=== PATIENT | female | born 1945 | race Caucasian/White ===

== ENCOUNTER → 2021-05-17 11:21 | Outpatient (BNVA) | payer MEDICARE, MEDICAID, SELFPAY | PROVIDERS: PCP Internal Medicine | DX: N39.0 Urinary tract infection, site not specified (principal); R34 Anuria and oliguria | CPT/HCPCS: 99212 ==

== ENCOUNTER 2022-08-24 11:44 | Outpatient (REF) | payer MEDICARE, MEDICAID, SELFPAY ==
[2022-08-24 16:53] LABS: Urine Cytology See Pathology rpt
== END 2022-08-24 11:45 | disposition home or self-care (01) ==
LOC: HO.LAB 11:44
PROVIDERS: PCP Internal Medicine; Visit Provider Nurse Practitioner Family
DX: N32.81 Overactive bladder (principal); N39.3 Stress incontinence (female) (male); N39.0 Urinary tract infection, site not specified; R34 Anuria and oliguria; Z79.82 Long term (current) use of aspirin; Z79.899 Other long term (current) drug therapy
CPT/HCPCS: 51798; 88112; 99212

== ENCOUNTER 2023-10-23 11:39 | Outpatient (AMB) | payer MEDICARE, MEDICAID, SELFPAY ==
--- NOTE | 2023-10-23 11:38 | MHC.OFFVIS ---
Intake Visit Reasons: one year follow up Intake Note: Patient is present for 1yr follow up recurrent uti and stress incontinence Urology Medications: myrbetriq, nitrofurantoin (prn) Blood thinner: aspirin PVR: 0ml's Application Development Director Required: No Accompanied by: Self / Same As Patient Allergies acetaminophen [Percocet] Allergy (Unknown, Verified 10/23/23 11:39) Unknown droperidol [Droperidol] Allergy (Unknown, Verified 10/23/23 11:39) DISORIENTATION/DIZZY/NAUSEA oxycodone [Percocet] Allergy (Unknown, Verified 10/23/23 11:39) Unknown pregabalin Allergy (Unknown, Verified 10/23/23 11:39) Unknown sumatriptan [From Imitrex] Allergy (Unknown, Verified 10/23/23 11:39) WELTS Diamox Sequels Allergy (Unknown, Uncoded 10/23/23 11:39) Unknown From Imitrex Allergy (Unknown, Uncoded 10/23/23 11:39) WELTS From Stadol Allergy (Unknown, Uncoded 10/23/23 11:39) DISORIENTATION/DIZZY/NAUSEA From Toradol Allergy (Unknown, Uncoded 10/23/23 11:39) DISORIENTATION/DIZZY/NAUSEA Stadol Allergy (Unknown, Uncoded 10/23/23 11:39) Unknown HPI Comments Details: Mariaelena is a pleasant 78-year-old female patient was accompanied by her Jayden at today's office visit. She has a past medical history of stress incontinence, chronic urinary tract infections, hiatal hernia, migraines, restless leg syndrome, interstitial cystitis, and diastolic heart failure. She presents to the office today for follow-up of her overactive bladder and chronic urinary tract infections. When asked she reports to be doing and feeling well. When asked she currently denies any urological issues or concerns at this time. She reports compliance with Myrbetriq and reports this to be working extremely well for her. She reports having been off of Myrbetriq awaiting prior authorization due to insurance changes and noted lower urinary tract symptoms however has since restarted the medication and has been doing and feeling well. When asked she denies urinary urgency, urinary frequency, incontinence, nocturia, hematuria, dysuria, foul smelling urine, changes to urinary stream, flank pain, fever, and or chills. She discusses her recent diagnosis of diastolic heart failure and is following up with cardiology regarding this issue. In office urinalysis results reviewed with the patient today. PVR 0 mL. She otherwise offers no other issues or concerns at this time. [facility] Medical History Stress incontinence Chronic urinary tract infection, suppressed Hiatal hernia Headache, migraine Restless leg syndrome UTI (urinary tract infection) Interstitial cystitis Surgical History History of surgery Social History Patient Tobacco Use Status: Never used Tobacco Review of Systems Const All systems reviewed & are unremarkable except as noted in HPI and below Reports as per HPI Eyes Reports no additional complaints ENT Reports no additional complaints Card Reports as per HPI Resp Reports no additional complaints GI Reports no additional complaints Reports as per HPI Musc Reports no additional complaints Neuro Details: Patient reports following up with Neurology for longstanding complex migraines Psych Details: Patient reports longstanding history of anxiety Endo Reports no additional complaints Ab/Lymph Reports no additional complaints Aller/Immun Reports no additional complaints Physical Exam Const General: cooperative, healthy appearing, comfortable, no acute distress, well developed, alert and awake Nutritional Appearance: average body habitus Orientation/consciousness: patient oriented x3 Limitations: no limitations HEENT Head: Yes normal to inspection, Yes normocephalic and Yes atraumatic Ears: hearing grossly normal bilaterally Eyes General: appearance normal, both eyes and all related structures Neck Neck: Yes normal visual inspection and Yes trachea midline Chest Chest palpation & inspection: normal inspection of the chest Resp Effort & Inspection: normal respiratory effort and able to speak in complete sentences Cardio Rate: regular rate GI Inspection: Yes normal to inspection General: Yes no CVA tenderness Back/Spine/Pelvis Back: no CVA tenderness Skin General skin exam: no rashes or lesions noted Neuro General: patient oriented x3 Extrem General: Yes normal to inspection Psych Appearance: grossly normal and well kempt Mental Status: mental status grossly normal Speech and movement: Normal speech and movement present and Clear speech present Affect: normal affect Attitude: cooperative Thought process: Normal thought process present Thought content: Normal thought content present Insight: Fair insight present (Psych) Judgement: Fair judgement present (Psych) Office Procedures Post Void Residual Post Residual Void Post Void Residual (PVR): 0 41098-Iaet Void Residual by ultrasound Results AMB Urinalysis, Automated UA Leukoctes 15 Norm/uL Last Edit by Troy Cantu on 10/23/23 11:59 UA Nitrite Negative Last Edit by [employer] on 10/23/23 11:59 UA Urobilinogen 0.2 mg/dL Last Edit by [employer] on 10/23/23 11:59 UA Protein 15 mg/dL Last Edit by [employer] on 10/23/23 11:59 UA pH 6.5 Last Edit by Aarki on 10/23/23 11:59 UA Blood 10 Nicolás/uL Last Edit by [employer] on 10/23/23 11:59 UA Specific [place] 1.010 Last Edit by [employer] on 10/23/23 11:59 UA Ketone Negative Last Edit by [employer] on 10/23/23 11:59 UA Bilirubin 0 mg/dL Last Edit by [employer] on 10/23/23 11:59 UA Glucose 0 mg/dL Last Edit by Aarki on 10/23/23 11:59 Results Reviewed Results Reviewed: Laboratory Last Values Urine pH (Auto) 6.5 10/23/23 11:40 Specific [place] (Auto) 1.010 10/23/23 11:40 Urine Protein (Auto) 15 mg/dL 10/23/23 11:40 Glucose (UA)(Auto) 0 mg/dL 10/23/23 11:40 Urine Ketones (Auto) Negative 10/23/23 11:40 Urine Blood (Auto) 10 Nicolás/uL 10/23/23 11:40 Urine Nitrite (Auto) Negative 10/23/23 11:40 Urine Bilirubin (Auto) 0 mg/dL 10/23/23 11:40 Urine Urobilinogen (Auto) 0.2 mg/dL 10/23/23 11:40 Leukocyte Esterase (Auto) 15 Norm/uL 10/23/23 11:40 Assessment & Plan Assessment & Plan (1) Stress incontinence: Code(s): N39.3 - Stress incontinence (female) (male) Category: Medical (2) Chronic urinary tract infection, suppressed: Code(s): N39.0 - Urinary tract infection, site not specified; R34 - Anuria and oliguria Category: Medical Plan In office urinalysis results reviewed with the patient today; as noted above. PVR 0 mL. Patient currently denies any bothersome urinary issues or concerns. She reports be happy with current voiding parameters. Continue Vagifem, Myrbetriq, and low-dose Macrobid Discussed UTI prevention with D mannose supplement, vitamin-C, increasing fluid intake, behavioral therapy with timed voiding, perineal hygiene and postcoital voiding, and management of constipation with stool softeners and increased fiber intake. Follow-up in 1 year with PVR; or sooner with any issues, concerns, and or questions. Orders: Orders AMB Urinalysis Automated Today Z13.9 - Encounter for screening, unspecified AMB Post Void Residual by ultrasound Today N39.3 - Stress incontinence (female) (male) Coding Level of Care Code Est Pt Level 3 (80338) Diagnoses Stress incontinence N39.3 Chronic urinary tract infection, suppressed N39.0; R34 CPT Codes Post Residual Void - PVR CPT Code: 96532-Azth Void Residual by ultrasound ([id number])
== END 2023-10-23 12:14 | disposition home or self-care (01) ==
PROVIDERS: Visit Provider Nurse Practitioner Family
DX: N39.3 Stress incontinence (female) (male) (principal); N39.0 Urinary tract infection, site not specified; R34 Anuria and oliguria; Z13.9 Encounter for screening, unspecified
CPT/HCPCS: 99213

== ENCOUNTER → 2023-10-23 11:39 | Outpatient (BNVA) | payer MEDICARE, MEDICAID, SELFPAY | PROVIDERS: Visit Provider Nurse Practitioner Family | DX: N39.3 Stress incontinence (female) (male) (principal); N39.0 Urinary tract infection, site not specified; R34 Anuria and oliguria; Z79.82 Long term (current) use of aspirin; Z79.899 Other long term (current) drug therapy | CPT/HCPCS: 51798; 81003; 99212 ==

== ENCOUNTER 2025-02-10 14:42 | Outpatient (REF) | payer MEDICARE, MEDICAID, SELFPAY ==
--- OUTSIDE RECORDS SUMMARY | 2025-02-10 18:30 | XMS_ITS | Clinical Summary ---
Author Organization [facility] Address [facility] [place] [address] Care Team Providers Care Edge Trimmer Mechanic Name Role Phone Unavailable Primary Care Provider Unavailabl e Social History Tobacco Use Types Packs/Day Years Used Date Smoking Tobacco: Never Assessed Comments Unknown Sex and Gender Information Value Date Recorded Sex Assigned at Not on file Legal Sex Female 4:08 PM EDT Gender Identity Not on file Sexual Orientation Not on file Plan of Treatment Health Maintenance Due Date Last Done Comments Hepatitis C Screening 1963 Tetanus/Diphtheria/Pertussis Vaccines (1 - Tdap) 10/12 Pneumoccocal Vaccine: 50+ (1 of 1 - PCV) 1996 Zoster vaccine (1 of 2) 1996 Advance Directive 2001 Bone Density Scan 10/13/2011 RSV Vaccine (1 - 1-dose 75+ series) 2021 Covid-19 Vaccine (1 - season) 2025 Influenza (Flu) vaccine (1 o f 1 - Influenza standard series) 02/03/2025 Insurance MEDICARE
--- OUTSIDE RECORDS SUMMARY | 2025-02-10 18:30 | XMS_ITS ---
Author Name [facility] Organization Unknown Care Team Organization Name Specialty Phone Email Start Date End Da te [facility] 01/22/2025 [facility] Willi Velásquez Primary Care 08/10/2022 01/22/2024 [facility] Termed, PROVIDER Primary Care 04/12/202201/03
== END 2025-02-10 14:43 | disposition home or self-care (01) ==
LOC: HO.LAB 14:42
PROVIDERS: PCP Internal Medicine; Visit Provider Nurse Practitioner Family
DX: N39.0 Urinary tract infection, site not specified (principal); R31.29 Other microscopic hematuria; R34 Anuria and oliguria; Z13.89 Encounter for screening for other disorder; Z79.82 Long term (current) use of aspirin
CPT/HCPCS: 51798; 81003; 88112; 99212

== ENCOUNTER 2025-02-10 14:42 | Outpatient (AMB) | payer MEDICARE, MEDICAID, SELFPAY ==
--- OUTSIDE RECORDS SUMMARY | 2024-12-05 11:30 | XMS_ITS ---
Author Organization [facility] Address [address] [place] [address] Care Team Providers Care Skein Drier Name Role Phone Willi Velásquez Primary Care Provider Rui Thomas Unavailable [phone] Medications Medication SIG (Take, Route, Frequency, Duration) Notes Start Date End Date Status cloNIDine HCl 0.2 MG TAKE 1 TABLET BY MOUTH TWICE A DAY; Duration: 90 Active Nortriptyline HCl 25 MG TAKE 2 CAPSULE BY MOUTH EVERY DAY FOR 30 DAYS; Duration: 90 days Active Emgality 120 MG/ML INJECT 1 PRE-FILLED SYRINGE EVERY 30 DAYS.; Duration: 30 days 5 Active CALCIUM 250-VIT D3 125 TABLET 250-125 MG-UNIT 0 chewable 2 qam; Duration: 30 *please review for potential _update for e-prescription and drug interaction check* 07/02/2019 Not-Taking MYRBETRIQ ER 50 MG TABLET 0 1 qam *please review for potential _update for e-prescription and drug interaction check* change to Myrbetriq 05/05/2017 Active Nortriptyline HCl 25 MG 2 capsules Orally Once a day; Duration: 90 days Active buPROPion HCl ER (SR) 150 MG 1 TABLET BY MOUTH TWICE A DAY; Duration: 90 days Active MIRALAX POWDER 17 GRAM/DOSE 0 1 capful q4days.; Duration: 0 *please review for potential _update for e-prescription and drug interaction check* 06/09/2014 Active Aspirin 81 MG 1 tablet Orally Once a day Active Famotidine 20 MG 0 Oral 1 bid; Duration: 30 09/30/2019 Active Ondansetron HCl 8 MG 20 Oral 1 tab q6h prn nausea.; Duration: 0 05/19/2017 Active Pramipexole Dihydrochloride 0.5 MG 0 Oral 1 qhs; Duration: 30 05/19/2017 Active FIORICET-COD 07-424-10-30 CAP MG 0 PRn, limited to 15/month.; Duration: 30 *please review for potential _update for e-prescription and drug interaction check* 07/20/2016 Active Escitalopram Oxalate 20 MG 1 tablet Orally Once a day Active Pantoprazole Sodium 40 MG 1 tablet Orally twice a day 12/05/2024 Active Ondansetron HCl 8 MG 1 tablet as needed Orally every 8 hours; Duration: 30 days 02/29/2024 Active Chlorthalidone 25 MG 1 tablet in the morning with food Orally every morning 02/29/2024 Active Nitrofurantoin 100 MG as directed Orally Active Vital Signs Blood pressure systolic 115 mm Hg 12/06/19 25 Blood pressure diastolic 69 mm Hg 025 Heart Rate 101 /min 12/05/2024 Height 8.094404 Inches in 12/05/2024 Weight 93.2 lbs 12/05/2024 BMI 1023.74 kg/m2 12/05/2024 Weight-kg 42.28 kg 12/05/2024 Encounters Encounter Location Date Provider Diagnosis [facility] [address] [place] [address] 12/05/2024 Rui Lucas Migraine without aur a, not intractable, without status migrainosus G43.009 Assessments Encounter Date Diagnosis (ICD Code) Assessment Notes Treatment Notes Treatment Clinical Notes Section Notes 12/05/2024 Migraine without aura, not intractable, without status migrainosus (ICD-10 - G43.009) Plan Of Treatment Next Appt Details Follow Up: 6 Months, Reason: Provider Name:Kecia Marc, 0 06/12/2025 10:00:00 AM, [address] [place] [address], [id number], Progress Notes * Mariaelena JOSÉ EDOB:1945 (79 yo F)Acc No.[id number]:12/05/2024 Progress Notes Patient: Mariaelena SHERIFF Provider: Ezra Lucas MD :1945 A ge:79 Y S ex:Female Date:12/05/2024 Address:[address] [place] [address] , [place], [id number] Pcp:Willi Velásquez Subjective: * Chief Complaints: * * Medical History: * Medications: T aking Pantoprazole Sodium 40 MG Tablet Delayed Release 1 tablet Orally twice a day , Taking Ondansetron HCl 8 MG Tablet 1 tablet as needed Orally every 8 hours , Taking Chlorthalidone 25 MG Tablet 1 tablet in the morning with food Orally every morning , Taking Nitrofurantoin 100 MG Capsule as directed Orally , Taking Escitalopram Oxalate 20 MG Tablet 1 tablet Orally Once a day , Taking Aspirin 81 MG Tablet Delayed Release 1 tablet Orally Once a day , Taking Famotidine 20 MG Tablet 0 Oral 1 bid , Taking Ondansetron HCl 8 MG Tablet 20 Oral 1 tab q6h prn nausea. , Taking Pramipexole Dihydrochloride 0.5 MG Tablet 0 Oral 1 qhs , Taking FIORICET-COD 77-472-51-30 CAP MG 0 PRn, limited to 15/month. , Notes to Pharmacist: *please review for potential _update for e-prescription and drug interaction check*, Taking MIRALAX POWDER 17 GRAM/DOSE 0 1 capful q4days. , Notes to Pharmacist: *please review for potential _update for e-prescription and drug interaction check*, Taking MYRBETRIQ ER 50 MG TABLET 0 1 qam , Notes to Pharmacist: *please review for potential _update for e-prescription and drug interaction check* change to Myrbetriq, Taking Nortriptyline HCl 25 MG Capsule 2 capsules Orally Once a day , Taking buPROPion HCl ER (SR) 150 MG Tablet Extended Release 12 Hour 1 TABLET BY MOUTH TWICE A DAY , Taking cloNIDine HCl 0.2 MG Tablet TAKE 1 TABLET BY MOUTH TWICE A DAY , Taking Nortriptyline HCl 25 MG Capsule TAKE 2 CAPSULE BY MOUTH EVERY DAY FOR 30 DAYS , Taking Emgality 120 MG/ML Solution Prefilled Syringe INJECT 1 PRE-FILLED SYRINGE EVERY 30 DAYS. , stop date 02/03/2025, Not-Taking CALCIUM 250-VIT D3 125 TABLET 250-125 MG-UNIT 0 chewable 2 qam , Notes to Pharmacist: *please review for potential _update for e-prescription and drug interaction check*, Discontinued traZODone HCl 100 MG Tablet 1 or 2 tablet at bedtime Orally Once a day , Notes to Pharmacist: paradoxical excitement, Discontinued Potassium Chloride ER 10 MEQ Tablet Extended Release 1 tablet with food Orally every morning Objective: * Vitals: B P: 115/69 mm Hg, HR: 101 /min, Wt: 93.2 lbs, Wt-k.28 kg, Ht: 8.914849 Inches, BMI: 1023.74 Index, Body Surface Area: 0.49. Assessment: * Assessment: 1. M igraine without aura, not intractable, without status migrainosus - G43.009 (Primary) Plan: * Treatment: * Follow Up: 6 Months * Billing Information: * Visit Code: 42504 OFFICE VISIT,EST PT,LEVEL 4. * Procedure Codes: * [place], [id number] on 02/10/2025 at 05:02 PM EDT Sign off status: Pending * Provider: Ezra Lucas MD Date: 12/05/2024 Generated for Luis Alfredo feng/Taylor/Syditting on: 02/10/2025 05:02 PM EDT
--- OUTSIDE RECORDS SUMMARY | 2025-02-06 11:00 | XMS_ITS | Encounter Summary ---
Author Organization [facility] [address] Address [address] [place] [address] Care Team Providers Care Cadd Instructor Name Role Phone Royce Velásquez MD Primary Care Provider [phone] Reason for Visit * Reason Comments hospital f/u Encounter Details Date Type Department Care Team (Latest Contact Info) Description 02/06/2025 11:00 AM EDT Office Visit [facility] [address] [place] [phone] Royce Velásquez MD [address] [place] [phone] Gastroparesis (Primary Dx); Hospital discharge follow-up Social History Tobacco Use Types Packs/Day Years Used Date Smoking Tobacco: Never Smokeless Tobacco: Never Tobacco Cessation:Counseling Given: Not Answered Alcohol Use Standard Drinks/Week Comments No 0 (1 standard drink = 0.6 oz pur e alcohol) Housing Instability Answer Date Recorde d Are you worried that in the next 2 months you may not have stable housing? No 01/28/2025 Food Access & Nutrition Answer Date Rec orded Do you have access to a vari ety of food including fruits and vegetables? Yes 10/08/2024 Access to Healthcare Answer Date Record ed Within the last 3 months, dean artis many times did you visit the emergency department for your medical care? 2 10/08/2024 Financial Risk Answer Date Recorded How hard is it for you to pa y for the very basics like food, housing, medical care, and air conditioning / heating? Not very hard 01/28/2025 Transportation Answer Date Recorded Has the lack of transportati on kept you from meetings, work, or from getting things needed for daily living? No Has the lack of transportati on kept you from medical appointments or from getting medications? No 01/28/2025 Social Isolation Answer Date Recorded How often do you feel lonely or isolated from th ose around you? Never 10/08/2024 Food Risk Answer Date Recorded Within the past 12 months we worried whether our food would run out before we got money to buy more. Never true 01/28/2025 Within the past 12 months th e food we bought just didn't last and we didn't have money to get more. Never true 01/28/2025 Dependent Care Answer Date Recorded Do you need help finding or paying for care for your loved ones. For example, attendant children's institution or elderly care for an older adult? No 10/08/2024 Education Answer Date Recorded Do you think completing more education or training, like finishing a GED, going to college, or learning a trade, would be helpful for you? N/A 10/08/2024 Employment and Income Answer Date Recor ded During the last four weeks, have you been actively looking for work? No 10/08/2024 Living Situation Answer Date Recorded What is your living situation? 0 01/28/2025 Comments No Sex and Gender Information Value Date Recorded Sex Assigned at Not on file Legal Sex Female 3:21 AM EST Gender Identity Not on file Sexual Orientation Not on file documented as of this encounter Last Filed Vital Signs Vital Sign Reading Time Taken Comments Blood Pressure 141/90 02/06/2025 11:12 AM EDT Pulse 100 02/06/2025 11:12 AM EDT Temperature 36.4 C (97.5 F) 02/06/2025 11:12 AM EDT Respiratory Rate - - Oxygen Saturation - - Inhaled Oxygen Concentration - - Weight 43.5 kg (96 lb) 02/06/2025 11:12 AM EDT Height 158.8 cm (5' 2.5 ) 02/06/2025 11:12 AM ED T Body Mass Index 17.28 02/06/2025 11:12 AM EDT documented in this encounter Progress Notes * C Yo Velásquez MD - 02/06/2025 11:00 AM EDT CHIEF COMPLAINT: hospital f/u IDENTIFIER: Mariaelena José is a 79 y.o. old female. HPI: Patient comes in with her friend for follow-up of recent hospitalization. She is being evaluated bygastroenterology for abdominal bloating and early satiety following hiatal hernia surgery. She was at the hospital getting a gastric emptying scan and began having reflux and abdominal pain and was sent to the ER for admission. She was able to eventually complete most of her scan but results not available. It does sound like she had gastroparesis. She is scheduled for an upper endoscopy later this month with her hand candy cutter. She is feeling a bit better now. She still feels some burning in her chest up into her throat. She has been taking Protonix, Pepcid and Gaviscon. ROS: GENERAL: Negative for malaise, significant weight loss and fever RESPIRATORY: No cough, wheezing or shortness of breath CARDIOVASCULAR: Negative for chest pain, leg swelling and palpitations GI: Negative for abdominal discomfort, changes in bowel habits, blood in stool or black stools : Negative for dysuria, frequency, and incontinence PAST MEDICAL HISTORY: Patient Active Problem List Diagnosis Date Noted Migraine without aura, not refractory 01/30/2025 Underweight 01/30/2025 Atrial tachycardia (CMS/HCC V24) 04/08/2024 Chronic neck pain 04/08/2024 Chronic UTI (urinary tract infection) 04/08/2024 Eczema 04/08/2024 Frequent headaches 04/08/2024 GERD (gastroesophageal reflux disease) 04/08/2024 Restless leg syndrome 04/08/2024 Abnormal EKG 08/03/2023 Multiple thyroid nodules 05/09/2023 Dizziness 05/05/2023 Other chest pain 05/05/2023 Diastolic dysfunction 10/04/2022 Atrophy of kidney 07/13/2022 Shortness of breath on exertion 10/11/2021 Allergic rhinitis 05/20/2020 Anxiety 05/20/2020 Edema of lower extremity 09/23/2019 Chronic kidney disease due to hypertension 06/03/2019 DDD (degenerative disc disease), lumbar 03/28/2018 Hypercholesteremia 11/21/2017 Syncope 09/05/2017 Primary hypertension 03/21/2017 Abnormal finding of kidney 07/11/2015 SOCIAL HISTORY: Social History Tobacco Use Smoking status: Never Smokeless tobacco: Never Substance Use Topics Alcohol use: No FAMILY HISTORY: Family Status Relation Name Status Mother Father Sister Alive MGM (Not Specified) Aunt (Not Specified) Father's bakari (Not Specified) Brother Alive No partnership data on file Family History Problem Relation Name Age of Onset Diabetes Mother Arthritis Mother Hypertension Father Heart attack Father 45.00 CABG Sister Other (Other: Stomach Cancer) Maternal Grandmother Stroke Aunt Other (Other: Heart Disease) Father's side ACTIVE MEDICATIONS: Outpatient Medications Marked as Taking for the 02/06/25 encounter (Office Visit) with Royce Velásquez MD Medication Sig Dispense Refill aspirin 81 mg EC tablet TAKE 1 TABLET BY MOUTH EVERY DAY 90 tablet 1 buPROPion SR (WELLBUTRIN SR) 150 mg 12 hr tablet Take 2 Tablets by mouth at bedtime. 1 in the am, 2in the pm rgfctvrjre-ghtnnpycorgio-bypjswot-codeine (FIORICET WITH CODEINE) 39-311-21-30 mg per capsule Take 1 capsule by mouth 1 (one) time each day if needed for headaches. Max Daily Amount: 1 capsule 15 capsule 1 cecgfxddpd-gjbyaev-sjawapoj-codeine (Ascomp with codeine) 42-62-167-40 mg per capsule Take 1 capsule by mouth every 4 (four) hours if needed for headaches. chlorthalidone (HYGROTON) 25 mg tablet TAKE 1 TABLET BY MOUTH EVERY DAY 90 tablet 3 cloNIDine (CATAPRES) 0.2 mg tablet Take 1 tablet by mouth 2 times daily. docusate sodium (COLACE) 100 mg capsule Take 2 capsules (200 mg total) by mouth. erythromycin base 250 mg tablet TAKE 1 TABLET BY MOUTH 3 TIMES A DAY WITH MEALS FOR 7 DAYS escitalopram (LEXAPRO) 20 mg tablet Take 1 tablet (20 mg total) by mouth 1 (one) time each day. 90 tablet 1 famotidine (PEPCID) 20 mg tablet TAKE 1 TABLET BY MOUTH TWICE A DAY 180 tablet 0 galcanezumab-gnlm (Emgality Syringe) 120 mg/mL syringe meloxicam (Mobic) 15 mg tablet Take 1 tablet (15 mg total) by mouth 1 (one) time each day if neededfor moderate pain. 30 each 1 mirabegron (Myrbetriq) 50 mg tablet extended release 24 hr 24 hr tablet daily. nitrofurantoin (MACRODANTIN) 100 mg capsule as needed. nortriptyline (PAMELOR) 25 mg capsule Take 2 Capsules by mouth at bedtime. pantoprazole (PROTONIX) 40 mg EC tablet Take 1 tablet (40 mg total) by mouth 1 (one) time each day.Do not crush, chew, or split. 90 tablet 1 polyethylene glycol (MIRALAX) 17 gram packet Take 17 g by mouth 1 (one) time each day. 510 g 11 potassium chloride (KLOR-CON) 10 mEq CR tablet TAKE 1 TABLET BY MOUTH EVERY DAY pramipexole (MIRAPEX) 0.5 mg tablet TAKE 1 AND 1/2 TABLETS BY MOUTH DAILY 135 tablet 0 ramelteon (Rozerem) 8 mg tablet Take 1 tablet (8 mg total) by mouth at bedtime. 30 each 1 senna (SENOKOT) 8.6 mg tablet Take 1 tablet (8.6 mg total) by mouth 1 (one) time each day. sodium phosphate (Fleet Enema) 19-7 gram/118 mL enema Insert into the rectum 1 (one) time. ALLERGIES: Acetazolamide, Adhesive tape-silicones, Butorphanol, Droperidol, Duloxetine hcl, Ketorolac, Other, Pregabalin, Sumatriptan, and Lisinopril PHYSICAL EXAM: Blood pressure (!) 141/90, pulse 100, temperature 36.4 ??C (97.5 ??F), temperature source Temporal,height 1.588 m (62.5 ), weight (!) 43.5 kg (96 lb). Body mass index is 17.28 kg/m??. Plan is deferred until next visit APPEARANCE: Alert and in no acute distress NECK: Neck supple, no adenopathy, thyroid symmetric and of normal size, No bruits HEART: RRR with normal S1 and S2, no murmurs, no gallops, no JVD appreciated LUNG: clear to auscultation bilaterally ABDOMEN: Bowel sounds normoactive, no bruits and soft, non-tender, without organomegaly or palpablemasses EXTREMITIES: Extremities warm and well perfused without clubbing, cyanosis, or edema LABS: IMPRESSION: 1. Gastroparesis 2. Hospital discharge follow-up PLAN: Unremarkable exam and she appears comfortable today. She will continue to work with gastroenterology. I suspect she has a little bit of esophagitis from her recent episode which is causing some lingering symptoms. She will continue current treatment. He also felt she might be constipated and she will make sure she is moving her bowels regularly. She has MiraLAX and stool softener which she has been using. Blood pressure borderline today. She has a regular follow-up in 2 weeks to recheck this. No orders of the defined types were placed in this encounter. ADDITIONAL ORDERS: None Royce Velásquez MD on 02/06/2025 at 3:06 PM EDT documented in this encounter Plan of Treatment Upcoming Encounters Date Type Department Care Team (Late st Contact Info) Description 02/19/2025 11:00 AM EDT Office Visit Adult Medicine [address] [phone] Nona Em NP [address] [place] [address] 03/04/2025 12:30 PM EDT Appointment [facility] Endoscopy [address] [place] [phone] Jhoan Silver MD [address] [place] [phone] 06/09/2025 10:30 AM EST Office Visit Adult Medicine [address] [phone] Royce Velásquez MD [address] [place] [phone] 06/10/2025 11:00 AM EST Office Visit Gastroenterology - 299 [facility] [address] [phone] Jhoan Silver MD [address] [place] [phone] documented as of this encounter Visit Diagnoses Diagnosis Gastroparesis- Primary Hospital discharge follow-up Other follow-up examination documented in this encounter Care Teams Cadd Instructor Relationship Specialty Start Date End Date Royce Velásquez MD [address] [place] [address] PCP - General Internal Medicine 01/27/15 documented as of this encounter
--- OUTSIDE RECORDS SUMMARY | 2025-02-06 12:05 | XMS_ITS | Encounter Summary ---
Author Organization [facility] Address [address] [place] [address] Care Team Providers Care Professor Of Environmental Studies Name Role Phone Royce Velásquez MD Primary Care Provider [phone] Encounter Details Date Type Department Care Team (Latest Contact Info) Description 02/06/2025 12:05 PM EDT - 02/06/2025 11:59 PM EDT Hospital Encounter [facility] Xray [address] [place] [address] Chronic idiopathic constipation Discharge Disposition: Home or Self Care Social History Tobacco Use Types Packs/Day Years Used Date Smoking Tobacco: Never Smokeless Tobacco: Never Alcohol Use Standard Drinks/Week Comments No 0 [...] Record ed Within the last 3 months, ho w many times did you visit the emergency [...] care for your loved ones. For example, early childhood coordinator or elderly care for an older adult? [...] on file documented as of this encounter Medications at Time of Discharge aspirin 81 mg EC tablet TAKE 1 TABLET BY MOUTH EVERY DAY 90 tablet 1 12/30/2024 bisacodyL (FLEET BISACODYL) 10 mg/30 mL enema Insert 30 mL (10 mg total) into the rectum 1 (one) time. buPROPion SR (WELLBUTRIN SR) 150 mg 12 hr tablet Take 2 Tablets by mouth at bedtime. 1 in the am, 2 in the pm butalbital-acetami qshwlj-vvwsyeyy-av deine (FIORICET WITH CODEINE) 94-690-76-30 mg per capsuleIndications :Frequent headaches Take 1 capsule by mouth 1 (one) time each day if needed for headaches. Max Daily Amount: 1 capsule 15 capsule 1 01/29/2025 butalbital-aspirin -caffeine-codeine (Ascomp with codeine) 84-04-581-40 mg per capsule Take 1 capsule by mouth every 4 (four) hours if needed for headaches. celecoxib (CeleBREX) 200 mg capsule Take 1 capsule (200 mg total) by mouth 2 (two) times a day. chlorthalidone (HYGROTON) 25 mg tablet TAKE 1 TABLET BY MOUTH EVERY DAY 90 tablet 3 11/20/2024 cloNIDine (CATAPRES) 0.2 mg tablet Take 1 tablet by mouth 2 times daily. docusate sodium (COLACE) 100 mg capsule Take 2 capsules (200 mg total) by mouth. 01/24/2025 erythromycin base 250 mg tablet TAKE 1 TABLET BY MOUTH 3 TIMES A DAY WITH MEALS FOR 7 DAYS escitalopram (LEXAPRO) 20 mg tablet Take 1 tablet (20 mg total) by mouth 1 (one) time each day. 90 tablet 1 12/30/2024 famotidine (PEPCID) 20 mg tablet TAKE 1 TABLET BY MOUTH TWICE A DAY 180 tablet 11/11/2024 galcanezumab-gnlm (Emgality Syringe) 120 mg/mL syringe 06/04/2021 galcanezumab-gnlm (Emgality Syringe) 120 mg/mL syringe Inject into the skin. meloxicam (Mobic) 15 mg tablet Take 1 tablet (15 mg total) by mouth 1 (one) time each day if needed for moderate pain. 30 each 1 05/14/2024 mirabegron (Myrbetriq) 50 mg tablet extended release 24 hr 24 hr tablet daily. 12/04/2019 nitrofurantoin (MACRODANTIN) 100 mg capsule as needed. 07/23/2021 nortriptyline (PAMELOR) 25 mg capsule Take 2 Capsules by mouth at bedtime. pantoprazole (PROTONIX) 40 mg EC tablet Take 1 tablet (40 mg total) by mouth 1 (one) time each day. Do not crush, chew, or split. 90 tablet 1 11/08/2024 polyethylene glycol (MIRALAX) 17 gram packetIndications: Chronic idiopathic constipation Take 17 g by mouth 1 (one) time each day. 510 g 11 01/31/2025 potassium chloride (KLOR-CON) 10 mEq CR tablet TAKE 1 TABLET BY MOUTH EVERY DAY 12/22/2023 pramipexole (MIRAPEX) 0.5 mg tablet TAKE 1 AND 1/2 TABLETS BY MOUTH DAILY 135 tablet 12/18/2024 ramelteon (Rozerem) 8 mg tablet Take 1 tablet (8 mg total) by mouth at bedtime. 30 each 1 12/31/2024 senna (SENOKOT) 8.6 mg tablet Take 1 tablet (8.6 mg total) by mouth 1 (one) time each day. sodium phosphate (Fleet Enema) 19-7 gram/118 mL enema Insert into the rectum 1 (one) time. documented as of this encounter Discharge Disposition Disposition Code Departure Means Destination Home or Self Care documented in this encounter Plan of Treatment Upcoming Encounters Date Type Department Care Team (Late st Contact Info) Description 02/19/2025 11:00 AM EDT Office Visit Adult Medicine [facility] [address] [place] [phone] Nona Em NP [address] [place] [address] 03/04/2025 12:30 PM EDT Appointment [facility] Endoscopy [address] [place] [phone] Jhoan Silver MD [address] [place] [phone] 06/09/2025 10:30 AM EST Office Visit Adult [facility] [address] [place] [phone] Royce Velásquez MD [address] [place] [phone] 06/10/2025 11:00 AM EST Office Visit Gastroenterology - 299 [facility] [address] [phone] Jhoan Silver MD [address] [place] [phone] documented as of this encounter Procedures Procedure Name Priority Date/Time Associated Diagnosis Comments XR ABDOMEN 1 VIEW Routine 02/06/2025 12: 22 PM EDT Chronic idiopathic constipation documented in this encounter Results * XR Abdomen 1 View (02/06/2025 12:22 PM EDT) Anatomical Region Laterality Modality Body Radiographic Maura ging 02/07/2025 8:21 AM EDT Impressions 02/07/2025 8:22 AM EDT Nonobstructive bowel gas pattern. There is evidence of moderately severe constipation. Code 84244 -------- FINAL REPORT -------- Dictated By: Hero Sheldon Dictated Date: 02/07/2025 08:21 ET Assigned Physician: Hero Sheldon Reviewed and Electronically Signed By: Hero Sheldon Signed Date: 02/07/2025 08:22 ET Workstation ID: [id number] Transcribed By: Self Edit Transcribed Date: 02/07/2025 08:21 ET Narrative 02/07/2025 8:22 AM EDT HISTORY: The patient is a 79-year-old female with constipation. FINDINGS: Supine radiographs of the abdomen demonstrate degenerative changes and dextroscoliosis of the lumbar spine. The bowel gas pattern is nonobstructive. A large amount of fecal material is present throughout the colon from the cecum to the rectum consistent with moderately severe constipation. Procedure Note Hero Sheldon MD - 02/07/2025 HISTORY: The patient is a 79-year-old female with constipation. FINDINGS: Supine radiographs of the abdomen demonstrate degenerativechanges and dextroscoliosis of the lumbar spine. The bowel gas pattern isnonobstructive. A large amount of fecal material is present throughoutthe colon from the cecum to the rectum consistent with moderately severeconstipation. IMPRESSION: Nonobstructive bowel gas pattern. There is evidence of moderately severeconstipation. Code 51238 -------- FINAL REPORT -------- Dictated By: Hero Sheldon Dictated Date: 02/07/2025 08:21 ET Assigned Physician: Hero Sheldon Reviewed and Electronically Signed By: Hero Sheldon Signed Date: 02/07/2025 08:22 ET Workstation ID: [id number] Transcribed By: Self Edit Transcribed Date: 02/07/2025 08:21 ET Enedelia VORA IMG XR PROCEDURES Final Result documented in this encounter Visit Diagnoses Diagnosis Chronic idiopathic constipation Unspecified constipation documented in this encounter Care Teams Professor Of Environmental Studies Relationship Specialty Start Date End Date Royce Velásquez MD [address] [place] [phone] PCP - General Internal Medicine 01/27/15 documented as of this encounter
--- OUTSIDE RECORDS SUMMARY | 2025-02-10 09:30 | XMS_ITS | Encounter Summary ---
Author Organization [facility] Address [address] [place] [address] Care Team Providers Care Commercial Reporter Name Role Phone Royce Velásquez MD Primary Care Provider [phone] Reason for Referral * Consultation (Routine) - Closed Specialty Diagnoses / Procedures Referred By Contopal t Referred To Contact Otolaryngology Diagnoses Excessive cerumen in ear canal, bilateral Nona Em NP [address] [place], [place] Phone: tel: fax: [facility] [address] [place] [address] Phone: tel: fax: Referral ID Status Reason Start Date Expiration Date V isits Requested Visits Authorized [id number] Closed Specialty Services Required 02/10/2025 02/10/2026 1 1 Reason for Visit * Reason Comments Cerumen Impaction Encounter Details Date Type Department Care Team (Late st Contact Info) Description 02/10/2025 9:30 AM EDT Office Visit Adult Medicine - [place] [address] [place] [phone] Nona Em NP [address] [place], [place] Excessive cerumen in ear canal, bilateral (Primary Dx); Dizziness Social History Tobacco Use Types Packs/Day Years [...] care for your loved ones. For example, child center assistant or elderly care for an older adult? [...] Sign Reading Time Taken Comments Blood Pressure 135/70 02/10/2025 9:17 AM EDT Pulse 79 02/10/2025 9:17 AM EDT Temperature 36.7 C (98 F) 02/10/2025 9:17 AM EDT Respiratory Rate - - Oxygen Saturation - - Inhaled Oxygen Concentration - - Weight 44 kg (97 lb) 02/10/2025 9:17 AM EDT Height 158.8 cm (5' 2.5 ) 02/10/2025 9:17 AM EDT Body Mass Index 17.46 02/10/2025 9:17 AM EDT documented in this encounter Progress Notes * Nona Em NP - 02/10/2025 9:30 AM EDTAssociated Order(s): Ear cerumen removal Post-Procedure Diagnose(s): Dizziness; Excessive cerumen in ear canal, bilateral CHIEF COMPLAINT: No chief complaint on file. IDENTIFIER: Mariaelena José is a 79 y.o. old female. HPI: History of Present Illness The patient presents for evaluation of earwax impaction. She reports that her ears have been blocked for some time, with one ear becoming completely blockeda while ago and the other a few weeks ago. Debrox has been used in both ears for the past 3 days, which has improved her hearing. However, intermittent blockage persists, requiring manual clearing. She recalls having her ears flushed 4 years ago due to hearing difficulties, after which her hearing improved. She has not consulted an ENT specialist since then. Ear cerumen removal Date/Time: 02/10/2025 9:43 AM Performed by: Nona Em NP Authorized by: Nona Em NP Informed Consent: Laterality: Right Relevant images/test results available and reviewed: no Health status cleared: Yes Procedure/treatment, purpose, treatment alternatives, risks/potential complications and benefits explained: yes Patient questions answered: yes Patient agrees, verbalizes understanding, and wants to proceed: yes Consent given by: Patient Informed consent discussion completed by Physician/JUANIS with patient: Written; patient signed and dated; copy to patient Procedure details: Location: R ear Procedure type: irrigation Post-procedure details: Inspection: TM intact Hearing quality: Improved Patient tolerance of procedure: Procedure terminated at patient's request Comments: Patient began to feel dizziness procedure was stopped. PAST MEDICAL HISTORY: Patient Active Problem List Diagnosis Date Noted Migraine without aura, not refractory 01/30/2025 Underweight 01/30/2025 Atrial tachycardia ([facility] V24) 04/08/2024 Chronic neck pain 04/08/2024 Chronic [...] (Other: Heart Disease) Father's side ACTIVE MEDICATIONS: No outpatient medications have been marked as taking for the 02/10/25 encounter (Appointment) with Nona Em NP. ALLERGIES: Acetazolamide, Adhesive tape-silicones, Butorphanol, Droperidol, Duloxetine hcl, Ketorolac, Other, Pregabalin, Sumatriptan, and Lisinopril PHYSICAL EXAM: There were no vitals taken for this visit. There is no height or weight on file to calculate BMI. Physical Exam Ears: Cerumen impaction noted in both ears. Left ear cleaned successfully with irrigation, resulting in clear ear canal. Right ear still has cerumen impaction. LABS/IMAGING: Lab Results Component Value Date WBC 6.6 09/12/2024 HGB 14.2 09/12/2024 HCT 46.0 09/12/2024 MCV 94.3 09/12/2024 Lab Results Component Value Date NA 138 01/30/2025 K 3.9 01/30/2025 CO2 30 01/30/2025 CL 100 01/30/2025 BUN 21 01/30/2025 ALKPHOS 269 (H) 09/12/2024 Lab Results Component Value Date CHOL 253 (A) 10/16/2023 LDL 129 (A) 10/16/2023 HDL 102 10/16/2023 TRIG 110 10/16/2023 ORDERS: No orders of the defined types were placed in this encounter. IMPRESSION: No diagnosis found. PLAN: Assessment & Plan 1. Cerumen impaction: - Reports using Debrox for the last 3 days in both ears. - During the visit, an attempt was made to flush the ears, but she experienced dizziness, likely due to water entering the ear. The right ear was successfully cleaned, but the right ear still has cerumen impaction. - Advised to continue using Debrox for a few more days to see if it helps in clearing the cerumen. A referral to an Ear, Nose, and Throat (ENT) specialist will be made for further evaluation and management of the left ear. 2. Dizziness: - Experienced dizziness during the ear flushing procedure, which subsided after stopping the procedure. - Advised to monitor her symptoms and report any persistent or worsening dizziness. PROCEDURE Procedure: Ear flushing - Procedural Discussion: Discussed the potential risks of ear flushing, including infection, injuryto the ear canal, and perforation of the tympanic membrane. Consent was reviewed and obtained. - Technique: Water was used to flush the ear canal to remove wax buildup. - Post-Procedural Discussion: The ear flushing was performed on the left ear, resulting in the removal of wax. The patient experienced dizziness during the procedure, which subsided afterward. The right ear was not fully flushed due to dizziness, and a referral to an ear, nose, and throat specialist was made. Results No orders of the defined types were placed in this encounter. For this encounter, I personally performed, face to face and bxe-vdoh-az-face services that include: -Review and update of allergies, PMH, problem list and medications.changes was reconciled with the patient/family/parent/guardian. - Medical appropriate examination - Care planning through shared decision making with counseling for plan of care, risk/benefit of care plan and follow-up recommendations I have obtained verbal consent from Mariaelena José prior to the recording. I have advised Mariaelena José that she may refuse the recording and require the recording to be turned off at any time during this encounter. Nona Em NP on 02/10/2025 at 8:01 AM EDT documented in this encounter Plan of Treatment Upcoming Encounters Date Type Department Care Team (Late st Contact Info) Description 02/19/2025 11:00 AM EDT Office Visit Adult Medicine [address] [address] Nona Em NP [address] [place] [address] 03/04/2025 12:30 PM EDT Appointment [facility] [address] [place] [phone] Jhoan Silver MD [address] [place] [phone] 06/09/2025 10:30 AM EST Office Visit Adult Medicine - [address] [phone] Royce Velásquez MD [address] [place] [address] 06/10/2025 11:00 AM EST Office Visit Gastroenterology - [address] [phone] Jhoan Silver MD [address] [place] [address] Scheduled Referrals Name Type Priority Associated Diagnoses Order Schedule Ambulatory referral to ENT Outpatient Referral Routine Excessive cerumen in ear canal, bilateral 1 Occurrences starting 02/10/2025 until 02/10/2026 documented as of this encounter Procedures Procedure Name Priority Date/Time Associated Diagnosis Comments MS REMOVAL CERUMEN IMPACTED IRRIGATION/LAVAGE UNILATERAL Routine 02/10/2025 9:43 AM EDT Excessive cerumen in ear canal, bilateral Dizziness documented in this encounter Results * MS REMOVAL CERUMEN IMPACTED IRRIGATION/LAVAGE UNILATERAL (02/10/2025 9:43 AM EDT) Nona Tompkins NP - 02/10/2025 9:43 AM EDT Nona Em NP 02/10/2025 9:55 AM Ear cerumen removal Date/Time: 02/10/2025 9:43 AM Performed by: Nona Em NP Authorized by: Nona Em NP Informed Consent: Laterality: Right Relevant images/test results available and reviewed: no Health status cleared: Yes Procedure/treatment, purpose, treatment alternatives, risks/potential complications and benefits explained: yes Patient questions answered: yes Patient agrees, verbalizes understanding, and wants to proceed: yes Consent given by: Patient Informed consent discussion completed by Physician/JUANIS with patient: Written; patient signed and dated; copy to patient Procedure details: Location: R ear Procedure type: irrigation Post-procedure details: Inspection: TM intact Hearing quality: Improved Patient tolerance of procedure: Procedure terminated at patient's request Comments: Patient began to feel dizziness procedure was stopped. Nona Em NP IN CLINIC/BEDSIDE ORDERABLES F inal Result documented in this encounter Visit Diagnoses Diagnosis Excessive cerumen in ear canal, bilateral- Primary Dizziness Dizziness and giddiness documented in this encounter Care Teams Commercial Reporter Relationship Specialty Start Date End Date Royce Velásquez MD [address] [place] [id number] PCP - General Internal Medicine 01/27/15 documented as of this encounter
--- NOTE | 2025-02-10 14:48 | MHC.OFFVIS ---
Intake Visit Reasons: 1Y PVR Intake Note: Patient is present for 1Y/PVR Urology Medication:MYRBETRIQ,POTASSIUM CHLORIDE Antibiotic Allergy:NONE Blood Thinner:ASPIRIN TODAY'S PVR:0ml's Gusset Ripper Required: No Allergies acetaminophen (Percocet) Allergy (Unknown, Verified 02/10/25 22:10) Unknown droperidol (Droperidol) Allergy (Unknown, Verified 02/10/25 22:10) DISORIENTATION/DIZZY/NAUSEA oxycodone (Percocet) Allergy (Unknown, Verified 02/10/25 22:10) Unknown pregabalin Allergy (Unknown, Verified 02/10/25 22:10) Unknown sumatriptan (From Imitrex) Allergy (Unknown, Verified 02/10/25 22:10) WELTS Diamox Sequels Allergy (Unknown, Uncoded 02/10/25 22:10) Unknown From Imitrex Allergy (Unknown, Uncoded 02/10/25 22:10) WELTS From Stadol Allergy (Unknown, Uncoded 02/10/25 22:10) DISORIENTATION/DIZZY/NAUSEA From Toradol Allergy (Unknown, Uncoded 02/10/25 22:10) DISORIENTATION/DIZZY/NAUSEA Stadol Allergy (Unknown, Uncoded 02/10/25 22:10) Unknown Medication List - Last Reconciled 02/10/25 by TAWNY Merlos-GONZALO aspirin 81 mg PO DAILY bupropion HCl SR 150 mg PO BID brwyntmfej-ubhnfabhvu-imw-cod [id number] mg 1 cap PO BEDTIME chlorthalidone 25 mg PO DAILY clonidine HCl 0.2 mg PO BID escitalopram oxalate 20 mg PO DAILY famotidine 20 mg PO BID galcanezumab-gnlm (Emgality) mg subcut meloxicam 15 mg PO DAILY Myrbetriq ER (mirabegron) 50 mg PO DAILY 30 days NS nitrofurantoin macrocrystal 100 mg PO BEDTIME 90 days nortriptyline mg PO pramipexole 0.5 mg PO BEDTIME sertraline 100 mg PO DAILY HPI Comments Details: Mariaelena is a pleasant 79-year-old female patient was accompanied by her Jayden at today's office visit. She has a past medical history of stress incontinence, chronic urinary tract infections, hiatal hernia, migraines, restless leg syndrome, interstitial cystitis, and diastolic heart failure. She presents to the office today for follow-up of her overactive bladder and chronic urinary tract infections. In discussion with the patient today she reports having had emergency surgery earlier this year in October for her hiatal hernia. She reports since surgical intervention she has been having ongoing issues with delayed gastric emptying, GERD, and constipation. She reports following up with GI regarding these issues. In office urinalysis results reviewed with the patient today. We did discuss trace microscopic hematuria. She denies any previous history of nicotine dependence and or workplace chemical exposure. We did discuss potential causes of microscopic hematuria as well as further interventions and risks and benefits of these interventions. She currently denies any bothersome urinary issues or concerns. She denies urinary urgency, urinary frequency, incontinence, nocturia, hematuria, dysuria, foul smelling urine, changes to urinary stream, flank pain, fever, and or chills. PVR 0 mL. She otherwise offers no other issues or concerns at this time. [facility] Medical History Stress incontinence Chronic urinary tract infection, suppressed Hiatal hernia Headache, migraine Restless leg syndrome UTI (urinary tract infection) Interstitial cystitis Surgical History History of surgery Social History Patient Tobacco Use Status: Never used Tobacco Review of Systems Const All systems reviewed & are unremarkable except as noted in HPI and below Reports as per HPI Eyes Reports no additional complaints ENT Reports no additional complaints Card Reports as per HPI Resp Reports no additional complaints GI Reports no additional complaints Reports as per HPI Musc Reports no additional complaints Neuro Details: Patient reports following up with Neurology for longstanding complex migraines Psych Details: Patient reports longstanding history of anxiety Endo Reports no additional complaints Ab/Lymph Reports no additional complaints Aller/Immun Reports no additional complaints Physical Exam Const General: cooperative, healthy appearing, comfortable, no acute distress, well developed, alert and awake Nutritional Appearance: average body habitus Orientation/consciousness: patient oriented x3 Limitations: no limitations HEENT Head: Yes normal to inspection, Yes normocephalic and Yes atraumatic Ears: hearing grossly normal bilaterally Eyes General: appearance normal, both eyes and all related structures Neck Neck: Yes normal visual inspection and Yes trachea midline Chest Chest palpation & inspection: normal inspection of the chest Resp Effort & Inspection: normal respiratory effort and able to speak in complete sentences Cardio Rate: regular rate GI Inspection: Yes normal to inspection General: Yes no CVA tenderness Back/Spine/Pelvis Back: no CVA tenderness Skin General skin exam: no rashes or lesions noted Neuro General: patient oriented x3 Extrem General: Yes normal to inspection Psych Appearance: grossly normal and well kempt Mental Status: mental status grossly normal Speech and movement: Normal speech and movement present and Clear speech present Affect: normal affect Attitude: cooperative Thought process: Normal thought process present Thought content: Normal thought content present Insight: Fair insight present (Psych) Judgement: Fair judgement present (Psych) Office Procedures Post Void Residual Post Residual Void Post Void Residual (PVR): 0 [address]-Siab Void Residual by ultrasound Results AMB Urinalysis, Automated UA Leukoctes 15 Norm/uL Last Edit by CEM Rangel on 02/10/25 16:37 UA Nitrite Negative Last Edit by CEM Rangel on 02/10/25 16:37 UA Urobilinogen 0.2 mg/dL Last Edit by CEM Rangel on 02/10/25 16:37 UA Protein 0 mg/dL Last Edit by CEM Rangel on 02/10/25 16:37 UA pH 7.0 Last Edit by CEM Rangel on 02/10/25 16:37 UA Blood 10 Nicolás/uL Last Edit by CEM Rangel on 02/10/25 16:37 UA Specific [place] 1.015 Last Edit by CEM Rangel on 02/10/25 16:37 UA Ketone Negative Last Edit by CEM Rangel on 02/10/25 16:37 UA Bilirubin 0 mg/dL Last Edit by CEM Rangel on 02/10/25 16:37 UA Glucose 0 mg/dL Last Edit by CEM Rangel on 02/10/25 16:37 Results Reviewed Results Reviewed: Laboratory Last Values Urine pH (Auto) 7.0 02/10/25 16:36 Specific [place] (Auto) 1.015 02/10/25 16:36 Urine Protein (Auto) 0 mg/dL 02/10/25 16:36 Glucose (UA)(Auto) 0 mg/dL 02/10/25 16:36 Urine Ketones (Auto) Negative 02/10/25 16:36 Urine Blood (Auto) 10 Nicolás/uL 02/10/25 16:36 Urine Nitrite (Auto) Negative 02/10/25 16:36 Urine Bilirubin (Auto) 0 mg/dL 02/10/25 16:36 Urine Urobilinogen (Auto) 0.2 mg/dL 02/10/25 16:36 Leukocyte Esterase (Auto) 15 Norm/uL 02/10/25 16:36 Assessment & Plan Assessment & Plan (1) Chronic urinary tract infection, suppressed: Code(s): N39.0 - Urinary tract infection, site not specified; R34 - Anuria and oliguria Category: Medical (2) Microscopic hematuria: Code(s): R31.29 - Other microscopic hematuria Category: Medical Plan In office urinalysis results reviewed with the patient today; as noted above; will send for urine cytology. PVR 0 mL. She currently denies any bothersome urinary issues or concerns. She reports be happy with current voiding parameters. Will continue with surveillance monitoring. We did discussed potential causes of microscopic hematuria. All questions were answered. Continue to follow-up with GI as planned. Follow-up in 1 year with PVR; or sooner with any issues, concerns, and or questions. Orders: Orders AMB Urinalysis Automated Today Z13.9 - Encounter for screening, unspecified Medications: Refilled nitrofurantoin macrocrystal must administer with a meal/food 100 mg PO BEDTIME 90 caps 3RF 90 days Patient Instructions: The patient had an opportunity to ask questions regarding the treatment plan. All questions were answered. Physical exam, labs, and imaging were discussed and reviewed in detail. As well as risks, benefits, and discussion of treatment choices. No major barriers to understanding were identified. The patient expressed understanding and agreement with the above treatment plan. The patient was made aware they should contact our office by phone for worsening of their current condition, the appearance of new symptoms, or with any questions or concerns. Compliance is encouraged with any medications and follow up testing that is ordered. It is a privilege to be allowed the opportunity to participate in? your urological care.? Again, if you have any questions or concerns If you have any questions or concerns please do not hesitate to contact me. The office is [phone]. This note is constructed using voice recognition software. While every effort has been made to ensure accuracy ditch inspector errors may have been included. Yours sincerely, TAWNY Merlos-GONZALO Coding Level of Care Code Est Pt Level 3 (79150) Complex EM visit Add On G2211 Diagnoses Chronic urinary tract infection, suppressed N39.0; R34 Microscopic hematuria R31.29 CPT Codes Post Residual Void - PVR CPT Code: 38141-Yqit Void Residual by ultrasound ([id number])
--- OUTSIDE RECORDS SUMMARY | 2025-02-10 17:02 | XMS_ITS | Encounter Summary ---
Author Organization [facility], Address [address] [place] [address] Phone Care Team Providers Care Ordnance Artificer Name Role Phone Willi Velásquez MD Primary Care Provider + Encounter Details Date Type Department Care Team (Late st Contact Info) Description 06/08/2021 Documentation Only [facility] [address] [place] [address] Perry Eid MD [address] [place] [address] [place] [address] Social History Tobacco Use Types Packs/Day Years Used Date Smoking Tobacco: Never Alcohol Use Standard Drinks/Week Comments No 0 (1 standard drink = 0.6 oz pur e alcohol) Comments Unknown Sex and Gender Information Value Date Recorded Sex Assigned at Not on file Legal Sex Female 4:34 PM EST Gender Identity Not on file Sexual Orientation Not on file documented as of this encounter Plan of Treatment Upcoming Encounters Date Type Department Care Team (Late st Contact Info) Description 07/16/2025 3:00 PM EST Office Visit [facility] [address] [place] [address] Perry Eid MD [address] [place] [address] [place] [address] documented as of this encounter Visit Diagnoses Not on filedocumented in this encounter Care Teams Ordnance Artificer Relationship Specialty Start Date End Date Willi Velásquez MD PCP - General 04/09/19 documented as of this encounter
--- OUTSIDE RECORDS SUMMARY | 2025-02-10 17:02 | XMS_ITS ---
Author Organization [address] [place] [address] [place] [phone] Phone Care Team Providers Care Foundry Engineer Name Role Phone Royce Velásquez MD Primary Care Provider [phone] Transitional Care Management Status:Ongoing (Active) Start date:01/24/2025 Enrollment date:01/28/2025 Enrollment reason:Identified using hospital discharge data Case Team Name Relationship Phone Joanna Mcfarlane LPN Care Manager(Responsible Staf f) [phone] Continued Care and Services Coordination
--- OUTSIDE RECORDS SUMMARY | 2025-02-10 17:02 | XMS_ITS | Patient Health Record ---
Author Organization [facility] Address [address] [place] [address] Care Team Providers Care Inspector Cold Working Name Role Phone Willi Velásquez Primary Care Provider Rui Thomas Unavailable [phone] Allergies Allergen (clinical drug ingredient) Drug/Non Drug Allergy documented on EMR Reaction Allergy Type Onset Date Status Diamox Sequels Unknown Drug Allergy Ac tive sumatriptan Imitrex Unknown Drug Allergy Activ e pregabalin Lyrica Unknown Drug Allergy Active Stadol Unknown Drug Allergy Active acetazolamide Acetazolamide shortness of breath Drug Allergy Active Reason For Referral No Information Medications Medication SIG (Take, Route, Frequency, Duration) Notes Start Date End Date Status Pramipexole Dihydrochloride 0.5 MG 0 Oral 1 qhs; Duration: 30 05/19/2017 Active FIORICET-COD [id number] CAP MG 0 PRn, limited to 15/month.; Duration: 30 *please review for potential _update for e-prescription and drug interaction check* 07/20/2016 Active Escitalopram Oxalate 20 MG 1 tablet Orally Once a day Active cloNIDine HCl 0.2 MG TAKE 1 TABLET BY MOUTH TWICE A DAY; Duration: 90 Active Aspirin 81 MG 1 tablet Orally Once a day Active Nortriptyline HCl 25 MG TAKE 2 CAPSULE BY MOUTH EVERY DAY FOR 30 DAYS; Duration: 90 days Active Famotidine 20 MG 0 Oral 1 bid; Duration: 30 09/30/2019 Active Ondansetron HCl 8 MG 20 Oral 1 tab q6h prn nausea.; Duration: 0 05/19/2017 Active CALCIUM 250-VIT D3 125 TABLET 250-125 MG-UNIT 0 chewable 2 qam; Duration: 30 *please review for potential _update for e-prescription and drug interaction check* 07/02/2019 Not-Taking Pantoprazole Sodium 40 MG 1 tablet Orally twice a day 12/05/2024 Active MYRBETRIQ ER 50 MG TABLET 0 1 qam *please review for potential _update for e-prescription and drug interaction check* change to Myrbetriq 05/05/2017 Active Ondansetron HCl 8 MG 1 tablet as needed Orally every 8 hours; Duration: 30 days 02/29/2024 Active Nortriptyline HCl 25 MG 2 capsules Orally Once a day; Duration: 90 days Active Chlorthalidone 25 MG 1 tablet in the morning with food Orally every morning 02/29/2024 Active Nitrofurantoin 100 MG as directed Orally Active buPROPion HCl ER (SR) 150 MG 1 TABLET BY MOUTH TWICE A DAY; Duration: 90 days Active Emgality 120 MG/ML INJECT 1 PRE-FILLED SYRINGE EVERY 30 DAYS.; Duration: 30 days Active MIRALAX POWDER 17 GRAM/DOSE 0 1 capful q4days.; Duration: 0 *please review for potential _update for e-prescription and drug interaction check* 06/09/2014 Active Problems Problem Type SNOMED Code ICD Code Onset Dates Problem Status W/U Status Risk Notes Problem Migraine without aura, not refractory ([id number]) Migraine without aura, not intractable, without status migrainosus (G43.009) Active confirmed Vital Signs Heart Rate 101 /min 12/05/2024 Blood pressure diastolic 69 mm Hg 12/05/2024 Weight-kg 42.28 kg 12/05/2024 Height 8.493122 Inches in 12/05/2024 Blood pressure systolic 115 mm Hg 12/05/2024 Weight 93.2 lbs 12/05/2024 BMI 1023.74 kg/m2 12/05/2024 Encounters Encounter Location Date Provider Diagnosis [facility] [address] [place] [id number] 12/05/2024 Rui Lucas Migraine without aur a, not intractable, without status migrainosus G43.009 [facility] [address] [place] [id number] 02/29/2024 Rui Lucas Migraine without aur a, not intractable, without status migrainosus G43.009 [facility] [address] [place] [address] 02/20/2024 Rui Lucas [facility] [address] [place] [address] 11/28/2024 Rui Lucas [facility] [address] [place] [address] 12/05/2024 Rui Lucas [facility] [address] [place] [address] 12/26/2024 Rui Lucas Assessments Encounter Date Diagnosis (ICD Code) Assessment Notes Treatment Notes Treatment Clinical Notes Section Notes 02/29/2024 Migraine without aura, not intractable, without status migrainosus (ICD-10 - G43.009) 12/05/2024 Migraine without aura, not intractable, without status migrainosus (ICD-10 - G43.009) Plan Of Treatment Next Appt Details Provider Name:Kecia Tran, 0 06/12/2025 10:00:00 AM, [address] [place] [address], [id number], Insurance Providers Payer Name Payer Address Payer Phone Subscriber Number Group Number Insured Name Patient Relationship to Insured Coverage Start Date Coverage End Date MEDICARE B [address] [place], [place] [id number] Mariaelena José Self - patient is the insured [place] [employer] [employer] [address] [place] [address] [phone] [id number] Mariaelena José Self - patient is the insured Medical (General) History Medical History History ICD Code Migraines Chronic neck Anxiety Hypertension Panic attacks Sepsis after cyst removed from throat Restless leg syndrome Left renal atrophy Thyroid nodules Tachycardia TIA Surgical History Surgery Date(Month/Year) Hernia repair Foot surgery for bone spur Thumb surgery Four cervical spine surgeries Retinal tear surgery Left shoulder surgery
--- OUTSIDE RECORDS SUMMARY | 2025-02-10 17:02 | XMS_ITS | Clinical Summary ---
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 Name Role Phone Royce Velásquez MD Primary Care Provider [phone] Allergies Active Allergy Reactions Criticality Noted Date Comments Acetazolamide Other,Wheezing 04/01/2015 SOB Adhesive Tape-Silicones Rash 08/02/2017 Butorphanol 10/04/2022 Droperidol 10/04/2022 Duloxetine Hcl 10/04/2022 Ketorolac 04/01/2015 Toradol - Not sure what it did, was told not to take it Lisinopril Dizziness Low 05/09/2017 Other Runny nose 02/01/2022 Seasonal allergies Pregabalin Other 04/01/2015 Arms and legs moved involutarily Sumatriptan Rash 04/01/2015 Medications buPROPion SR (WELLBUTRIN SR) 150 mg 12 hr tablet Take 2 Tablets by mouth at bedtime. 1 in the am, 2 in the pm Active cloNIDine (CATAPRES) 0.2 mg tablet Take 1 tablet by mouth 2 times daily. Active galcanezumab-gnl m (Emgality Syringe) 120 mg/mL syringe 06/04/20 21 Active galcanezumab-gnl m (Emgality Syringe) 120 mg/mL syringe Inject into the skin. Active mirabegron (Myrbetriq) 50 mg tablet extended release 24 hr 24 hr tablet daily. 12/04/19 20 Active nitrofurantoin (MACRODANTIN) 100 mg capsule as needed. 07/23/19 22 Active nortriptyline (PAMELOR) 25 mg capsule Take 2 Capsules by mouth at bedtime. Active potassium chloride (KLOR-CON) 10 mEq CR tablet TAKE 1 TABLET BY MOUTH EVERY DAY 12/22/19 24 Active meloxicam (Mobic) 15 mg tablet Take 1 tablet (15 mg total) by mouth 1 (one) time each day if needed for moderate pain. 30 each 1 05/14/20 24 Active pantoprazole (PROTONIX) 40 mg EC tablet Take 1 tablet (40 mg total) by mouth 1 (one) time each day. Do not crush, chew, or split. 90 tablet 1 11/09/19 25 Active famotidine (PEPCID) 20 mg tablet TAKE 1 TABLET BY MOUTH TWICE A DAY 180 tablet 11/12/19 25 Active chlorthalidone (HYGROTON) 25 mg tablet TAKE 1 TABLET BY MOUTH EVERY DAY 90 tablet 3 11/21/19 25 Active pramipexole (MIRAPEX) 0.5 mg tablet TAKE 1 AND 1/2 TABLETS BY MOUTH DAILY 135 tablet 12/19/19 25 Active aspirin 81 mg EC tablet TAKE 1 TABLET BY MOUTH EVERY DAY 90 tablet 1 12/31/19 25 Active escitalopram (LEXAPRO) 20 mg tablet Take 1 tablet (20 mg total) by mouth 1 (one) time each day. 90 tablet 1 12/31/19 25 Active ramelteon (Rozerem) 8 mg tablet Take 1 tablet (8 mg total) by mouth at bedtime. 30 each 1 01/01/20 25 026 Active butalbital-aceta minophen-caffein e-codeine (FIORICET WITH CODEINE) [phone] mg per capsuleIndicatio ns:Frequent headaches Take 1 capsule by mouth 1 (one) time each day if needed for headaches. Max Daily Amount: 1 capsule 15 capsule 1 01/30/20 25 Active docusate sodium (COLACE) 100 mg capsule Take 2 capsules (200 mg total) by mouth. 01/25/20 25 Active erythromycin base 250 mg tablet TAKE 1 TABLET BY MOUTH 3 TIMES A DAY WITH MEALS FOR 7 DAYS Active bisacodyL (FLEET BISACODYL) 10 mg/30 mL enema Insert 30 mL (10 mg total) into the rectum 1 (one) time. Active senna (SENOKOT) 8.6 mg tablet Take 1 tablet (8.6 mg total) by mouth 1 (one) time each day. Active butalbital-aspir ql-qwwhejql-wpth ine (Ascomp with codeine) [phone] mg per capsule Take 1 capsule by mouth every 4 (four) hours if needed for headaches. Active celecoxib (CeleBREX) 200 mg capsule Take 1 capsule (200 mg total) by mouth 2 (two) times a day. Active sodium phosphate (Fleet Enema) 19-7 gram/118 mL enema Insert into the rectum 1 (one) time. Active polyethylene glycol (MIRALAX) 17 gram packetIndication s:Chronic idiopathic constipation Take 17 g by mouth 1 (one) time each day. 510 g 11 02/01/20 25 026 Active butalbital-aceta minophen-caffein e-codeine (FIORICET WITH CODEINE) [phone] mg per capsuleIndicatio ns:Frequent headaches Take 1 capsule by mouth 1 (one) time each day if needed for headaches. Max Daily Amount: 1 capsule 15 capsule 1 10/22/19 25 025 Discontinued polyethylene glycol (MIRALAX) 17 gram packet Take 17 g by mouth 1 (one) time each day. 025 Discontinued(Re order) Active Problems Problem Noted Date Diagnosed Date Migraine without aura, not refractory 01/30/2025 Underweight 01/30/2025 Atrial tachycardia ([facility] V24) 04/08/2024 Overview (04/08/2024): Per pt Chronic neck pain 04/08/2024 Chronic UTI (urinary tract infection) 04/08/2024 Eczema 04/08/2024 Frequent headaches 04/08/2024 Overview (04/08/2024): Tension headaches and migraines Neurology, [place] GERD (gastroesophageal reflux disease) Assessment & Plan (01/31/2025 5:14 PM EDT): Symptoms persistent despite treatment of constipation. Recommend patient continue omeprazole and famotidine. Patient due for colonoscopy, will add on EGD. I also recommend the patient's seek follow-up with thoracic surgery as most of her symptoms are status post surgical repair of her paraesophageal hernia, and have not improved despite treatment of constipation. Restless leg syndrome 04/08/2024 Abnormal EKG 08/03/2023 Multiple thyroid nodules 05/09/2023 Overview (04/08/2024): 06/28. Stable nodules with 2 small new benign appearing noduls Dizziness 05/05/2023 Overview (04/08/2024): Last Assessment & Plan: As I know she does get occasional dizzy/lig.headed spells. Also 1 time she did have a very low blood pressure. This may be related to the losartan I told her she should let her billiard table repairer who had started her on this. Other chest pain 05/05/2023 Overview (04/08/2024): Last Assessment & Plan: As I noted she has been having this discomfort was sharp pain which goes from her back up to her chest this is to her neck and jaw. As I noted this to be via she states for the past 40 years and it feels no different. Did have a nuclear stress test back in October 2021 and at that time there is no evidence for ischemia Or infarction. 3 times daily was normal. She has had a history of hiatal hernia this pain may be due to that. I did tell though she ever have this discomfort again that lasted over 20 minutes I would want her to call 911. Diastolic dysfunction 10/04/2022 Overview (04/08/2024): Last Assessment & Plan: Patient did have an echocardiogram in November 2021. At that time the left ventricle is actually small in size. The wall thickness at that time was to slightly increased. The diastolic thickness was 0.98 cm the posterior wall thicknesses 0.91 cm. LVEF was 60 to 65% there is grade 2 diastolic dysfunction with increased left atrial pressure. There is no significant valvular disease. This time her breathing is doing better on exam today I do not find any signs for heart failure. This time would continue with the current dose of chlorthalidone. I did tell if she knows that her weight was going up by about several pounds this could indicate that she may be silhouette of fluid and she should notify us. I also told her that she is swot to do some activities that she is to get short of breath she is slow down. Atrophy of kidney 07/13/2022 Shortness of breath on exertion 10/11/2021 Overview (04/08/2024): Sleep study neg. Last Assessment & Plan: As I know this patient has been having shortness of breath with exertion now for the past year which is progressively becoming worse. Exact etiology is not clear. In the past and her CBC was unremarkable but I am going to repeat this. Her lungs are clear but I will check a chest x-ray. I do not think she has heart failure but I will check a BNP. Also going check a D-dimer. I exam I do not hear anything to suggest significant valvular heart disease but again check an echocardiogram. My other concern is that this could be ischemic mediated we will get a nuclear stress test. Allergic rhinitis 05/20/2020 Anxiety 05/20/2020 Edema of lower extremity 09/23/2019 Chronic kidney disease due to hypertension 06/03 DDD (degenerative disc disease), lumbar 03/28/20 18 Overview (04/08/2024): 03/22- severe L5-S1, mri pending, reduced patellar reflex on left Hypercholesteremia 11/21/2017 Overview (04/08/2024): Last Assessment & Plan: Last lipid panel from May 2022. Total cholesterol 221, HDL 90, LDL 111. Followed by PCP. Syncope 09/05/2017 Overview (04/08/2024): 07/23 Mibi normal 08/20. cardilogy eval neg per pt. Primary hypertension 03/21/2017 Overview (04/08/2024): Intol lisinopril (dizziness) Last Assessment & Plan: 126/68 in office today, continue chlorthalidone, valsartan, and clonidine. Abnormal finding of kidney 07/11/2015 Overview (04/08/2024): Per patient one kidney dysfunctional? No information available previous records Follows with Dr Wolf- started Lisinopril 10mg for elevated BP Resolved Problems Problem Noted Date Diagnosed Date Resolved Date Mixed hyperlipidemia 08/03/2023 024 Encounters Date Type Department Care Team Description 02/10/2025 9:30 AM EDT Office Visit [facility] [address] [place] [address] Nona Em NP Excessive cerumen in ear canal, bilateral (Primary Dx); Dizziness 02/06/2025 12:05 PM EDT - 02/06/2025 11:59 PM EDT Hospital Encounter [facility] Xray [address] [place] [phone] Chronic idiopathic constipation Discharge Disposition: Home or Self Care 02/06/2025 11:00 AM EDT Office Visit [facility] [address] [place] [phone] Royce Velásquez MD Gastroparesis (Primary Dx); Hospital discharge follow-up 02/05/2025 Telephone Gastroenterology - [address] [place] [phone] Jhoan Silver MD 02/04/2025 Telephone Gastroenterology - [address] [phone] Lisa Guzman MA 02/04/2025 Telephone Gastroenterology - [address] [phone] Lisa Guzman MA 01/31/2025 3:30 PM EDT Office Visit Gastroenterology - [address] [phone] Enedelia Blount PA Chronic idiopathic constipation (Primary Dx); Gastroesophageal reflux disease, unspecified whether esophagitis present; Gastroparesis; Colon cancer screening 01/29/2025 Telephone Gastroenterology - [address] [phone] Jhoan Silver MD 12/30/2024 1:25 PM EDT - 12/30/2024 11:59 PM EDT Hospital Encounter [facility] [place] [phone] Hematuria, unspecified type Discharge Disposition: Home or Self Care 11/21/2024 Telephone Adult Medicine [facility] [place] [phone] Royce Velásquez MD 11/19/2024 1:15 PM EDT Office Visit Adult [facility] [place] [phone] Royce Velásquez MD Hypercholesteremia (Primary Dx); Primary hypertension; Frequent headaches; Dizziness; Anxiety; Weight loss from Last 3 Months Immunizations Name Administration Dates Next Due Influenza trivalent, 0.5mL ( Fluad) 65yo and older 04/12/2022,04/09/2021,02/11/2019,2017,03/24/2016 Influenza trivalent, 0.5mL, preservative free (Fluarix; FluLaval; Fluzone) ages 6mo and older (Afluria) 3 years and older 03/10/2015 Pfizer (ages 12 & older) Biv alent, COVID-19 04/12/2022 Pfizer SARS-CoV-2 COVID-19, mRNA, LNP-S, preservative free 04/12/2021,08/25/2020,08/04/2020 Pneumococcal conjugate 13 va lent (Prevnar 13, PCV13) 2mo and older 03/24/2016 Pneumococcal, Unspecified 03/10/2015 Tdap Tetanus diptheria acell ular pertussis (Boostrix; Adacel) 7yo and older 04/14/2015 Surgical History Surgery Date Site/Laterality Comments NECK SURGERY 06/05/1991 PROCEDURE: HISTORICAL NECK SURGERY; COMMENT: C5-C6 FOOT SURGERY [id number] PROCEDURE: HISTORICAL FOOT SURGERY; COMMENT: spur HERNIA REPAIR 06/05/2011 PROCEDURE: HISTORICAL HERNIA REPAIR/ING OTHER SURGICAL HISTORY 06/05/1978 PROCEDURE: HISTORICAL THYRO-DUCTAL CYST REMOVAL CARPAL TUNNEL RELEASE 09/2023 Right PROCEDURE: HISTORICAL CARPAL TUNNEL REL GASTRIC FUNDOPLICATION COLONOSCOPY 07/22/2014 ESOPHAGOGASTRODUODENOSCOPY 07/22/2014 Medical History Medical History Date Comments Migraine headache DX:Migraine he adache Chronic UTI (urinary tract infection) DX:Chronic UTI (urinary tract infection) Restless leg syndrome DX:Restles s leg syndrome GERD (gastroesophageal reflux disease) DX:GERD (gastroesophageal reflux disease) Atrial tachycardia (CMS/HCC V24) DX:Atrial tachycardia (HCC) Chronic neck pain DX:Chronic nec k pain Eczema DX:Eczema Hypertension 03/21/2017 DX:Hypertension Family History Medical History Relation Name Comments Stroke Aunt Heart attack Father Hypertension Father Other: Heart Disease Father's side Other: Stomach Cancer Maternal Grandmother Arthritis Mother Diabetes Mother CABG Sister Relation Name Status Comments Aunt Brother Alive Father Father's side Maternal Grandmother Mother Sister Alive Social History Tobacco Use Types Packs/Day Years [...] care for your loved ones. For example, exceptional children teacher or elderly care for an older adult? [...] on file Sexual Orientation Not on file Obstetrics History Last Filed Vital Signs Vital Sign Reading Time Taken Comments Blood Pressure 135/70 02/10/2025 9:17 AM EDT Pulse 79 02/10/2025 9:17 AM EDT Temperature 36.7 C (98 F) 02/10/2025 9:17 AM EDT Respiratory Rate 16 10/29/2024 1:30 PM EDT Oxygen Saturation 99% 07/10/2024 10:36 AM EST Inhaled Oxygen Concentration - - Weight 44 kg (97 lb) 02/10/2025 9:17 AM EDT Height 158.8 cm (5' 2.5 ) 02/10/2025 9:17 AM EDT Body Mass Index 17.46 02/10/2025 9:17 AM EDT Plan of Treatment Upcoming Encounters Date Type Department Care Team (Late st Contact Info) Description 02/19/2025 11:00 AM EDT Office Visit Adult Medicine - [place] [address] [place] [phone] Nona Em NP [address] [place] [address] 03/04/2025 12:30 PM EDT Appointment [facility] Endoscopy [address] [place] [phone] Jhoan Silver MD [address] [place] [phone] 06/09/2025 10:30 AM EST Office Visit Adult Medicine - [place] [address] [place] [phone] Royce Velásquez MD [address] [place], [place] 06/10/2025 11:00 AM EST Office Visit Gastroenterology - [address] [place] [address] Jhoan Silver MD [address] [place] [phone] Health Maintenance Due Date Last Done Comments Falls Risk Assessment 05/14/2022 Osteoporosis Screening (Bone Density Screening) 05/14/2022 Medicare Annual Wellness Visit 11/23/2023 11/22/2022 Depression Screening 06/05/2024 COVID-19 Vaccine (8 - Pfizer risk season) 2025 01/27/2024, 04/05/2023, 04/12/2022, Additional history exists Influenza Vaccine (#1) 2025 , 04/05/2023, 04/12/2022, Additional history exists DTaP,Tdap,and Td Vaccines (3 - Td or Tdap) 04/14/2025 04/14/2015, 01/11/2002 Social Influencers of Health Screening 01/28/2026 01/28/2025 Hypertension/CHF/CAD Annual BMP Blood Test 01/30/2026 01/30/2025, 09/12/2024, 10/16/2023, Additional history exists Cholesterol Screening (Lipid Panel) 10/15/2028 10/16/2023, 10/16/2023 Hepatitis A Vaccines Aged Out 08/01/2002, 01/12/20 02 No longer eligible based on patient's age to complete this topic Hepatitis B Vaccines Completed 08/01/2002, 02/27/2002, 01/11/2002 Colorectal Cancer Screening: Colonoscopy Discontinued 07/22/2014 Hepatitis C Screening Completed 05/16/2016 Zoster Vaccines Completed 06/25/2019, 01/26/2019 RSV Immunization Adult Patients Completed 04/05/2023 Pneumococcal Vaccine: 50+ Years Completed 04/30/2024, 03/24/2016, 03/10/2015, Additional history exists HIB Vaccines Aged Out No longer eligi ble based on patient's age to complete this topic HPV Vaccines Aged Out No longer eligi ble based on patient's age to complete this topic IPV Vaccines Aged Out No longer eligi ble based on patient's age to complete this topic MMR Vaccines Aged Out No longer eligi ble based on patient's age to complete this topic Meningococcal ACWY Vaccine Aged Out N o longer eligible based on patient's age to complete this topic Meningococcal B Vaccine Aged Out No l onger eligible based on patient's age to complete this topic RSV Immunization Patients Under 20 months Aged Out No longer eligible based on patient's age to complete this topic Varicella Vaccines Aged Out No longer eligible based on patient's age to complete this topic Procedures Procedure Name Priority Date/Time Associated Diagnosis Comments MI REMOVAL CERUMEN IMPACTED IRRIGATION/LAVAGE UNILATERAL Routine 02/10/2025 9:43 AM EDT Excessive cerumen in ear canal, bilateral Dizziness XR ABDOMEN 1 VIEW Routine 02/06/2025 12: 22 PM EDT Chronic idiopathic constipation RENAL FUNCTION PANEL Routine 01/30/2025 3:54 PM EDT Essential hypertension, malignant 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, or unspecified(403.00) Chronic kidney disease, unspecified EXTERNAL ENDOSCOPY REPORT Routine 01/30/2025 10:[address] ABDOMEN PELVIS W CONTRAST Routine 01/22/2025 2:18 PM EDT US RETROPERITONEAL COMPLETE Routine 12/30/2024 1:52 PM EDT Hematuria, unspecified type CULTURE URINE Routine 12/13/2024 1:56 PM EDT Dysuria CLOSTRIDIUM DIFFICILE TOXIN Routine 12/13/2024 1:48 PM EDT Diarrhea, unspecified type URINALYSIS WITH REFLEX MICROSCOPIC Routine 11/21/2024 3:09 PM EDT Dysuria URINALYSIS WITH REFLEX MICROSCOPIC Routine 11/21/2024 3:09 PM EDT Dysuria CULTURE URINE Routine 11/21/2024 3:09 PM EDT Dysuria LIPID PANEL Routine 10/16/2023 HM HEPATITIS C SCREENING Routine 05/16/2016 EXTERNAL COLONOSCOPY REPORT Routine 07/22/2014 10:38 AM EST from Last 3 Months or Most Recently Relevant to Health Maintenance Results * MI REMOVAL CERUMEN IMPACTED IRRIGATION/LAVAGE UNILATERAL (02/10/2025 9:43 [...] NP IN CLINIC/BEDSIDE ORDERABLES F inal Result * XR Abdomen 1 View (02/06/2025 12:22 PM EDT) Anatomical Region Laterality Modality Body Radiographic Maura ging 02/07/2025 8:21 AM EDT Impressions 02/07/2025 8:22 AM EDT Nonobstructive bowel gas pattern. There is evidence of moderately severe constipation. Code 03747 -------- FINAL REPORT -------- Dictated By: Hero Sheldon Dictated Date: 02/07/2025 08:21 ET Assigned Physician: Hero Sheldon Reviewed and Electronically Signed By: Hero Sheldon Signed Date: 02/07/2025 08:22 ET Workstation ID: [id number] Transcribed By: Self Edit Transcribed Date: 02/07/2025 [...] There is evidence of moderately severeconstipation. Code 80171 -------- FINAL REPORT -------- Dictated By: Hero Sheldon Dictated Date: 02/07/2025 08:21 ET Assigned Physician: Hero Sheldon Reviewed and Electronically Signed By: Hero Sheldon Signed Date: 02/07/2025 08:22 ET Workstation ID: [id number] Transcribed By: Self Edit Transcribed Date: 02/07/2025 08:21 ET us Enedelia VORA IMG XR PROCEDURES Final Result * Renal function panel (01/30/2025 3:54 PM EDT) Sodium 138 133 - 145 mmol/L LAB CHEMISTRY METHOD 01/30/2025 6:50 PM EDT [facility] Potassium 3.9 3.5 - 5.5 mmol/L LAB CHEMISTRY METHOD 01/30/2025 6:50 PM EDT [facility] Chloride 100 96 - 110 mmol/L LAB CHEMISTRY METHOD 01/30/2025 6:50 PM [facility] CO2 30 21 - 32 mmol/L LAB CHEMISTRY METHOD 01/30/2025 6:50 PM [facility] Anion Gap 8 3 - 11 LAB CHEMISTRY METHOD 01/30/2025 6:50 PM [facility] Glucose 89 70 - 100 mg/dL LAB CHEMISTRY METHOD 01/30/2025 6:50 PM [facility] BUN 21 5 - 25 mg/dL LAB CHEMISTRY METHOD 01/30/2025 6:50 PM [facility] Creatinine 0.74 0.50 - 1.10 mg/dL LAB CHEMISTRY METHOD 01/30/2025 6:50 PM [facility] eGFR 83 >=60 mL/min/1. 73m2 LAB CHEMISTRY METHOD 01/30/2025 6:50 PM [facility] Comment:Calculation based on the Chronic Kidney Disease Epidemiology Collaboration (CKD-EPI) equation refit without adjustment for race. BUN/Creatinine Ratio 28.4 LAB CHEMISTRY METHOD 01/30/2025 6:50 PM [facility] Albumin 3.8 3.2 - 5.0 g/dL LAB CHEMISTRY METHOD 01/30/2025 6:50 PM [facility] Calcium 10.5 8.5 - 10.5 mg/dL LAB CHEMISTRY METHOD 01/30/2025 6:50 PM [facility] Phosphorus 4.2 2.5 - 4.5 mg/dL LAB CHEMISTRY METHOD 01/30/2025 6:50 PM [facility] Blood Venous blood specimen / Unknown Venipuncture / Unknown 01/30/2025 3:54 PM EDT 01/30/2025 3:54 PM EDT Perry Eid MD LAB BLOOD ORDERABLES Final Result [facility] [address] [place] [address], * External Endoscopy (01/30/2025 10:37 AM EDT) Anatomical Region Laterality Modality Endoscopy us Historical Provider GI~PROCEDURE ORDERABLES F inal Result * CT Abdomen Pelvis w Contrast (01/22/2025 2:18 PM EDT) Anatomical Region Laterality Modality Body Computed Tomogra phy us Historical Provider MD IMG CT PROCEDURES Final R esult * US Retroperitoneal Complete (12/30/2024 1:52 PM EDT) Anatomical Region Laterality Modality Body Radiographic Maura ging 12/30/2024 4:22 PM EDT Impressions 12/30/2024 4:30 PM EDT No right hydronephrosis or nephrolithiasis. Right renal cyst. Left kidney not visualized. Left kidney noted to be severely atrophic on a previous lumbar spine MRI from 2017. POS - [id number] -------- FINAL REPORT -------- Dictated By: Ingrid Da Silva Dictated Date: 12/30/2024 16:22 ET Assigned Physician: Ingrid Da Silva Reviewed and Electronically Signed By: Ingrid Da Silva Signed Date: 12/30/2024 16:30 ET Workstation ID: [id number] Transcribed By: Self Edit Transcribed Date: 12/30/2024 16:22 ET Narrative 12/30/2024 4:30 PM EDT EXAM: Ultrasound retroperitoneal HISTORY: Hematuria. COMPARISON: None FINDINGS: Right kidney is within normal limits for size measuring 11.2 cm. Cortical thickness and echogenicity are within normal limits. No hydronephrosis or shadowing stone. 3.6 x 3.4 x 3.2 cm cyst arising from the lower pole. Left kidney not visualized. On lumbar spine MRI from 04/09/2018, left kidney was noted to be severely atrophic. Limited assessment of the bladder due to underdistention. No large mass or stone identified. Ureteral jets not visualized. Procedure Note Ingrid Da Silva MD - 12/30/2024 EXAM: Ultrasound retroperitoneal HISTORY: Hematuria. COMPARISON: None FINDINGS: Right kidney is within normal limits for size measuring 11.2 cm. Corticalthickness and echogenicity are within normal limits. No hydronephrosis orshadowing stone. 3.6 x 3.4 x 3.2 cm cyst arising from the lower pole. Left kidney not visualized. On lumbar spine MRI from 04/09/2018, leftkidney was noted to be severely atrophic. Limited assessment of the bladder due to underdistention. No large mass orstone identified. Ureteral jets not visualized. IMPRESSION: No right hydronephrosis or nephrolithiasis. Right renal cyst. Left kidney not visualized. Left kidney noted to be severely atrophic on aprevious lumbar spine MRI from 2017. POS - [id number] -------- FINAL REPORT -------- Dictated By: Ingrid Da Silva Dictated Date: 12/30/2024 16:22 ET Assigned Physician: Ingrid Da Silva Reviewed and Electronically Signed By: Ingrid Da Silva Signed Date: 12/30/2024 16:30 ET Workstation ID: [id number] Transcribed By: Self Edit Transcribed Date: 12/30/2024 16:22 ET us C Yo Velásquez MD IMG US PROCEDURES Final Result * Culture urine (12/13/2024 1:56 PM EDT) Only the most recent of2 resultswithin the time period is included. Culture, Urine <10,000 cfu/mL Mixed bacterial kyle 12/14/2024 10:07 AM EDT [facility] Urine Urine specimen from urethra / Unknown Non-blood Collection / Unknown 12/13/2024 1:56 PM EDT 12/13/2024 1:56 PM EDT C Yo Velásquez MD LAB MICROBIOLOGY - GENERAL ORD ERABLES Final Result [facility] [address] [place] [address], [place] [phone] * Clostridium difficile toxin (12/13/2024 1:48 PM EDT) [facility] Clostridium difficile GDH Antigen Negative Negative 12/13/2024 4:59 PM EDT [facility] C difficile Toxins A+B, EIA Negative Negative 12/13/2024 4:59 PM EDT [facility] Comment:NEGATIVE FOR TOXIN P RODUCING CLOSTRIDIOIDES DIFFICILE, NO ADDITIONAL TESTING IS NECESSARY. Stool Rectum structure / Unknown Non-blood Collection / Unknown 12/13/2024 1:48 PM EDT 12/13/2024 1:48 PM EDT [facility] Yo Velásquez MD LAB MICROBIOLOGY - GENERAL ORD ERABLES Final Result [facility] [address] [place] [address], [place] [phone] * (ABNORMAL) Urinalysis with reflex microscopic (11/21/2024 3:09 PM EDT) [facility] Specific [place] Urine 1.019 1.003 - 1.030 LAB URINALYSIS - AUTOMATED METHOD 11/21/2024 5:46 PM EDT [facility] pH, Urine 5.5 5.0 - 8.0 pH LAB URINALYSIS - AUTOMATED METHOD 11/21/2024 5:46 PM EDT [facility] Leukocytes, Urine Moderate(A) Negative LAB URINALYSIS - AUTOMATED METHOD 11/21/2024 5:46 PM EDT [facility] Nitrite, Urine Negative Negative LAB URINALYSIS - AUTOMATED METHOD 11/21/2024 5:46 PM EDT [facility] Protein, Urine Trace <=Trace mg/dL LAB URINALYSIS - AUTOMATED METHOD 11/21/2024 5:46 PM EDT [facility] Glucose, Urine Negative Negative mg/dL LAB URINALYSIS - AUTOMATED METHOD 11/21/2024 5:46 PM EDT [facility] Ketones, Urine Trace(A) Negative mg/dL LAB URINALYSIS - AUTOMATED METHOD 11/21/2024 5:46 PM [facility] Urobilinogen , Urine 1.0 0.2 - 1.0 mg/dL LAB URINALYSIS - AUTOMATED METHOD 11/21/2024 5:46 PM [facility] Bilirubin, Urine Negative Negative LAB URINALYSIS - AUTOMATED METHOD 11/21/2024 5:46 PM [facility] Blood, Urine Small(A) Negative LAB URINALYSIS - AUTOMATED METHOD 11/21/2024 5:46 PM [facility] RBC, Urine 15.7(H) 0 - 4 /HPF LAB URINALYSIS - AUTOMATED METHOD 11/21/2024 5:46 PM [facility] WBC, Urine 11.2(H) 0 - 4 /HPF LAB URINALYSIS - AUTOMATED METHOD 11/21/2024 5:46 PM [facility] Squamous Epithelial, Urine 61(H) 0 - 60 /LPF LAB URINALYSIS - AUTOMATED METHOD 11/21/2024 5:46 PM [facility] Bacteria, Urine Negative Negative /HPF LAB URINALYSIS - AUTOMATED METHOD 11/21/2024 5:46 PM [facility] Hyaline Casts, Urine 2.0 0 - 3 /LPF LAB URINALYSIS - AUTOMATED METHOD 11/21/2024 5:46 PM [facility] Urine Urine specimen from urethra / Unknown Non-blood Collection / Unknown 11/21/2024 3:09 PM EDT 11/21/2024 3:09 PM EDT us C Yo Velásquez MD LAB URINE ORDERABLES Final Res ult [facility] [address] [place] [address], * (ABNORMAL) Lipid panel (10/16/2023) LDL/HDL Ratio 3 0 - 4 Triglycerides 110 0 - 150 mg/dL Cholesterol 253(A) 0 - 200 mg/dL HDL 102 >=40 mg/dL LDL Cholesterol 129(A) 0 - 100 mg/dL Blood Venous blood specimen / Unknown Historical Provider LAB BLOOD ORDERABLES Carla l Result * Hepatitis C Screening (05/16/2016) Hepatitis C Screening abstracted Historical Provider HEALTH MAINTENANCE Final Result * External Colonoscopy Report (07/22/2014 10:38 AM EST) Anatomical Region Laterality Modality Endoscopy Historical Provider GI~PROCEDURE ORDERABLES F inal Result from Last 3 Months or Most Recently Relevant to Health Maintenance Insurance MEDICARE MEDICAID - [place] Care Teams Wind Tunnel Engineer Relationship Specialty Start Date End Date Royce Velásquez MD [address] [place] [phone] PCP - General Internal Medicine 01/27/15
--- OUTSIDE RECORDS SUMMARY | 2025-02-10 17:02 | XMS_ITS | Encounter Summary ---
Author Organization [facility], Address [address] [place] [address] Phone Care Team Providers Care Coronary Care Unit Nurse Name Role Phone Willi Velásquez MD Primary Care Provider + Encounter Details Date Type Department Care Team (Late st Contact Info) Description 01/30/2025 Documentation Only [facility] [address] [place] [address] Jodi ReichTRACY, [place] [address] [place] [address] Social History Tobacco Use Types Packs/Day Years [...] Visit [facility] [address] [place] [address] Perry Eid MD [address] [facility] [place] [address] documented as of this encounter Visit Diagnoses Not on filedocumented in this encounter Care Teams Coronary Care Unit Nurse Relationship Specialty Start Date End Date Willi Velásquez MD PCP - General 04/09/19 documented as of this encounter
--- OUTSIDE RECORDS SUMMARY | 2025-02-10 17:02 | XMS_ITS | Encounter Summary ---
Author Organization [facility] Address [address] [place] [address] Care Team Providers Care Dairy Farm Worker Name Role Phone Royce Velásquez MD Primary Care Provider [phone] Encounter Details Date Type Department Care Team (Late st Contact Info) Description 02/05/2025 Telephone Gastroenterology - [address] [place] [address] Jhoan Silver MD [address] [facility] [place] [phone] Social History Tobacco Use Types Packs/Day Years [...] on file documented as of this encounter Progress Notes * Josselin Garay - 02/05/2025 3:05 PM EDT CX the colon and kept just the EGD. Called pt and advised. * Nolvia Vernon - 02/05/2025 2:46 PM EDT Pt has a colon and egd booked for 03/04 and would like to only do the egd and not the colon documented in this encounter Plan of Treatment Upcoming Encounters Date Type Department Care Team (Late st Contact Info) Description 02/19/2025 11:00 AM EDT Office Visit Adult Medicine - [address] [phone] Nona Em NP [address] [place] [address] 03/04/2025 12:30 PM EDT Appointment [facility] Endoscopy [address] [place] [phone] Jhoan Silver MD [address] [place] [phone] 06/09/2025 10:30 AM EST Office Visit Adult Medicine - [place] [address] [place] [phone] Royce Velásquez MD [address] [place], [place] 06/10/2025 11:00 AM EST Office Visit Gastroenterology - 299 [facility] [address] [phone] Jhoan Silver MD [address] [place] [phone] documented as of this encounter Visit Diagnoses Not on filedocumented in this encounter Care Teams Dairy Farm Worker Relationship Specialty Start Date End Date Royce Velásquez MD [address] [place] [address] PCP - General Internal Medicine 01/27/15 documented as of this encounter
--- OUTSIDE RECORDS SUMMARY | 2025-02-10 17:02 | XMS_ITS | Clinical Summary ---
Author Organization [facility], Address [address] [facility] [place] [address] Phone Care Team Providers Care Front Office Attendant Name Role Phone Willi Velásquez MD Primary Care Provider + Allergies Active Allergy Reactions Criticality Noted Date Comments Acetazolamide Other (see comments) 04/01/2015 Adhesive Tape Other (see comments) 08/02/2017 Butorphanol Other (see comments) 06/03/2019 Droperidol Other (see comments) 06/03/2019 Flurandrenolide Other (see comments) 06/03/2019 Ketorolac Other (see comments) 06/03/2019 Ketorolac Tromethamine 04/01/2015 Not sure what it did, was told not to take it Lisinopril Other (see comments) Low 05/09/2017 Pregabalin Other (see comments) 04/01/2015 Arms and legs moved involutarily Sumatriptan Other (see comments) 04/01/2015 Medications aspirin (ASPIRIN ADULT LOW STRENGTH) 81 MG EC tablet TAKE 1 TABLET BY MOUTH EVERY DAY 9 Active baclofen (LIORESAL) 10 MG tablet TAKE 1 TABLET BY MOUTH AT BEDTIME NEEDED FOR MUSCLE SPASM.WILL CAUSE SEDATION 9 Active buPROPion SR (WELLBUTRIN SR) 150 MG 12 hr tablet Comments: Filled Date: Oct 18 2016 12:00AM Patient Notes: TAKE 1 TABLET EVERY MORNING AND TAKE 2 TABLETS AT BEDTIME Duration: 30 7 Active butalbital-acet aminophen-caffe ine-codeine (FIORICET WITH CODEINE) [id number] MG per capsule TAKE 1 CAPSULE BY MOUTH EVERY DAY AT ONSET FOR HEADACHE 9 Active ciprofloxacin (CIPRO) 500 MG tablet Comments: Filled Date: Aug 26 2016 12:00AM Patient Notes: TAKE 1 TABLET BY MOUTH TWICE A DAY FOR 5 DAYS Duration: 5 7 Active cloNIDine (CATAPRES) 0.2 MG tablet Take 0.4 mg by mouth Active meloxicam (MOBIC) 15 MG tablet Take 15 mg by mouth daily 9 Active MYRBETRIQ 50 MG tablet sustained-relea se 24 hour Take 1 tablet by mouth daily 9 Active nortriptyline (PAMELOR) 25 MG capsule Comments: Filled Date: Oct 18 2016 12:00AM Patient Notes: TAKE 3 CAPSULES BY MOUTH AT BEDTIME Duration: 30 6 Active pramipexole (MIRAPEX) 0.5 MG tablet Take 0.5 mg by mouth every night 9 Active Emgality 120 MG/ML solution prefilled syringe 1 Active ondansetron (ZOFRAN) 8 MG tablet 1 Active HYDROmorphone (DILAUDID) 2 MG tablet TAKE 1 TABLET BY MOUTH EVERY 4 TO 6 HOURS NEEDED FOR PAIN. (DO NOT DRIVE WHILE ON THIS MEDICATION) 2 Active nitrofurantoin (MACRODANTIN) 100 MG capsule 2 Active polyethylene glycol (GLYCOLAX) 17 GM/SCOOP powder DISSOLVE 17 GRAMS IN 8 OUNCES OF WATER AND DRINK ONCE DAILY 2 Active escitalopram (LEXAPRO) 20 MG tablet Take 20 mg by mouth 1 (one) time each day 2 Active famotidine (PEPCID) 20 MG tablet Take 20 mg by mouth 2 Active pantoprazole (PROTONIX) 40 MG EC tablet Take 40 mg by mouth 1 (one) time each day before breakfast Do not crush, chew, or split. 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 No information available previous records Follows with Dr Wolf- started Lisinopril 10mg for elevated BP Encounters Date Type Department Care Team Description 01/30/2025 Documentation Only [facility] [address] [place] [address] Jodi Reich [place] 01/03/2025 3:30 PM EDT Office Visit [facility] [address] [place] [address] Perry Eid MD Chronic kidney disease due to hypertension (Primary Dx); Hypertension; Atrophy of kidney 12/24/2024 Orders Only [facility] [address] [place] [address] Jodi Reich [place] Chronic kidney disease due to hypertension (Primary Dx); Hypertension; Atrophy of kidney from Last 3 Months Immunizations Immunization Administration Dates Next Due Influenza Split High Dose Pr eservative Free IM 02/11/2019,03/28/2018,03/24/2016 Influenza TIV (IM) 03/10/2015 Pneumococcal Conjugate 13-Valent 03/24/2016 Pneumococcal, Unspecified 03/10/2015 Tdap 04/14/2015 Zoster 06/25/2019,01/26/2019 Family History Medical History Relation Comments Heart disease Father Hypertension Father Kidney disease Father great grandfathe r Cancer Mother grandmother Diabetes Mother Diabetes Sibling 1 brother Heart disease Sibling 2 uncle Hypertension Sibling 3 Relation Status Comments Father Mother Sibling 1 Sibling 2 Sibling 3 Social History Tobacco Use Types Packs/Day Years Used Date Smoking Tobacco: Never Alcohol Use Standard Drinks/Week Comments No 0 (1 standard drink = 0.6 oz pur e alcohol) Comments Unknown Sex and Gender Information Value Date Recorded Sex Assigned at Not on file Legal Sex Female 4:34 PM EST Gender Identity Not on file Sexual Orientation Not on file Last Filed Vital Signs Vital Sign Reading Time Taken Comments Blood Pressure 110/70 01/03/2025 3:59 PM EDT Pulse - - Temperature - - Respiratory Rate - - Oxygen Saturation - - Inhaled Oxygen Concentration - - Weight 55 kg (121 lb 3.2 oz) 07/01/2021 12:14 PM EST Height 152.4 cm (5') 09/10/2018 12:00 PM EDT Body Mass Index 23.67 09/10/2018 12:00 PM EDT Plan of Treatment Upcoming Encounters Date Type Department Care Team (Late st Contact Info) Description 07/16/2025 3:00 PM EST Office Visit [facility], [address] [facility] [place] [address] Perry Eid MD [address] [facility] [place] [phone] Health Maintenance Due Date Last Done Comments Pneumococcal Vaccine: 50+ Years (3 of 3 - PCV20 or PCV21) 06/28/2016 05/03/2016, 03/24/2016, 03/10/2015, Additional history exists Influenza Vaccine (#1) 2025 2, 04/09/2021, 02/11/2019, Additional history exists Hepatitis B Vaccine Aged Out 08/01/2002, 02/27/2002, 01/11/2002 No longer eligible based on patient's age to complete this topic Pneumococcal Vaccine: Peds (0 to 5 Years) and At-Risk Patients (6 to 49 Years) Discontinued 05/03/2016, 03/24/2016, 03/10/2015, Additional history exists Insurance Medicare Medicaid [place] Care Teams Front Office Attendant Relationship Specialty Start Date End Date Willi Velásquez MD PCP - General 04/09/19
--- OUTSIDE RECORDS SUMMARY | 2025-02-10 17:02 | XMS_ITS | Encounter Summary ---
Author Organization [facility], Address [address] [place] [address] Phone Care Team Providers Care Ecological Risk Assessor Name Role Phone Willi Velásquez MD Primary Care Provider + Encounter Details Date Type Department Care Team (Late st Contact Info) Description 08/04/2023 Documentation Only [facility] [address] [place] [address] [place]odi [place], [place] [address] [place] [address] Social History Tobacco Use Types [...] Visit [facility] [address] [place] [address] Perry Eid MD [address] [facility] [place] [address] documented as of this encounter Visit Diagnoses Not on filedocumented in this encounter Care Teams Ecological Risk Assessor Relationship Specialty Start Date End Date Willi Velásquez MD PCP - General 04/09/19 documented as of this encounter
--- OUTSIDE RECORDS SUMMARY | 2025-02-10 17:03 | XMS_ITS | Encounter Summary ---
Author Organization [facility] Address [address] [place] [address] Care Team Providers Care Freight Booker Name Role Phone Royce Velásquez MD Primary Care Provider [phone] Reason for Visit * Reason Onset Date Comments Esophagus Issues 01/29/2025 Encounter Details Date Type Department Care Team ([facility] st Contact Info) Description 01/29/2025 Telephone Gastroenterology - [address] [facility] [address] [place] [address] Jhoan Silver MD 230 [facility] [place] [phone] Social History Tobacco Use Types Packs/Day Years [...] getting things needed for daily living? No 08/26/202 5 Has the lack of transportati on kept [...] for your loved ones. For example, child protective services specialist or elderly care for an older adult? [...] as of this encounter Progress Notes * Dinah Logan - 01/30/2025 9:10 AM EDT Pt is calling wondering if she can be put on a cancellation list. She states she was recently seen in the ER for gas, pressure in esophagus, abd pain, and hital hernia issues and was told she needed to be seen sooner. * Nolvia Vernon - 01/29/2025 10:24 AM EDT Which provider do you see here? : Nadeem What symptoms are you having? : Pt is having gas,pressure in esophagus,abd pain,hital hernia issues When did symptoms start? : 3 month Have you been seen for this issue before? : documented in this encounter Plan of Treatment Upcoming Encounters Date Type Department Care Team (Late st Contact Info) Description 02/19/2025 11:00 AM EDT Office Visit Adult Medicine - [place] [address] [place] [address] Nona Em NP [address] [place] [address] 03/04/2025 12:30 PM EDT Appointment [facility] Endoscopy [address] [place] [phone] Jhoan Silver MD [address] [place] [phone] 06/09/2025 10:30 AM EST Office Visit Adult Medicine [facility] [address] [place] [address] Royce Velásquez MD [address] [place] [address] 06/10/2025 11:00 AM EST Office Visit Gastroenterology - 299 [facility] [address] [phone] Jhoan Silver MD [address] [place] [phone] documented as of this encounter Visit Diagnoses Not on filedocumented in this encounter Care Teams Freight Booker Relationship Specialty Start Date End Date Royce Velásquez MD [address] [place] [address] PCP - General Internal Medicine 01/27/15 documented as of this encounter
== END 2025-02-10 15:33 | disposition home or self-care (01) ==
LOC: HO.HUSH 14:42
PROVIDERS: PCP Internal Medicine; Visit Provider Nurse Practitioner Family
DX: N39.0 Urinary tract infection, site not specified (principal); R34 Anuria and oliguria; R31.29 Other microscopic hematuria; Z13.9 Encounter for screening, unspecified
CPT/HCPCS: 99213; G2211